=== PATIENT | male | born 1950 | race Caucasian/White ===

== ENCOUNTER → 2018-08-31 | Outpatient (CLI) | payer MEDICARE, MEDICAID ==
[~2018-08-31] MED LIST: HYDR2.5T38
[2018-08-31 08:44] LABS: Basophils # (auto) 0.1 uL; Basophils % (auto) 0.9 % (0.0-2.0); Eosinophils # (auto) 0.3 uL; Hematocrit 50.8 % (41.0-53.0); Hemoglobin 17.3 g/dL (13.5-17.5); Lymphocytes # (auto) 2.2 uL; Lymphocytes % (auto) 21.4 % (10.0-50.0); Mean Corpuscular Hemoglobin 31.8 pg (28.0-32.0); Mean Corpuscular Volume 93.6 fL (80.0-100.0); Monocytes # (auto) 0.8 uL; Monocytes % (auto) 7.6 % (0.0-12.0); Neutrophils # (auto) 6.8 uL; Neutrophils % (auto) 67.1 % (37.0-80.0); Nucleated Red Blood Cells % 0.3 %; Platelet Count (auto) 152 10^3/uL (140-450); Red Blood Cells 5.43 10^6/uL (4.5-5.90); Red Cell Distribution Width 14.5 % (11.8-14.3); White Blood Cell 10.1 10^3/uL (4.4-10.8)
[2018-08-31 08:45] LABS: Urine Bacteria MOD /hpf (None Seen); Urine Blood 1+ /uL (Negative); Urine Mucus FEW (None Seen); Urine Specific Gravity 1.015 (1.001-1.035); Urine WBC 65 /hpf (0 - 3)
[2018-08-31 09:02] LABS: Albumin 3.7 g/dL (3.4-5.0); BUN/Creatinine Ratio 9.4; Calcium 9.1 mg/dL (8.5-10.1)
[2018-08-31 09:05] LABS: Bilirubin, Total 0.6 mg/dL (0.2-1.0); Total Protein 7.7 g/dL (6.4-8.2)
== END | disposition home or self-care (01) ==
LOC: LAB 08:16
PROVIDERS: ATTEND Nurse Practitioner
DX: E11.9 Type 2 diabetes mellitus without complications (principal)
CPT/HCPCS: 36415; 80053; 80061; 81001; 82043; 83036; 84443; 85025

== ENCOUNTER → 2018-11-09 | Outpatient (CLI) | payer MEDICARE, MEDICAID ==
[2018-11-09 08:25] LABS: Basophils # (auto) 0.1 uL; Basophils % (auto) 0.8 % (0.0-2.0); Eosinophils # (auto) 0.3 uL; Hemoglobin 17.9 g/dL (13.5-17.5); Mean Corpuscular Hgb Conc. 33.1 g/dL (32.0-36.0); Monocytes # (auto) 0.9 uL; Nucleated Red Blood Cells % 0.1 %
[2018-11-09 08:27] LABS: Eosinophils % (auto) 2.7 % (0.0-7.0); Hematocrit 54.1 % (41.0-53.0); Lymphocytes # (auto) 3.2 uL; Lymphocytes % (auto) 26.3 % (10.0-50.0); Mean Corpuscular Hemoglobin 31.9 pg (28.0-32.0); Mean Corpuscular Volume 96.1 fL (80.0-100.0); Monocytes % (auto) 7.2 % (0.0-12.0); Neutrophils # (auto) 7.6 uL; Platelet Count (auto) 102 10^3/uL (140-450); Red Blood Cells 5.63 10^6/uL (4.5-5.90); Red Cell Distribution Width 14.5 % (11.8-14.3)
[2018-11-09 08:30] LABS: Urine Bacteria FEW /hpf (None Seen); Urine Blood TRACE /uL (Negative); Urine Mucus FEW (None Seen); Urine Specific Gravity 1.012 (1.001-1.035); Urine WBC 18 /hpf (0 - 3)
[2018-11-09 09:21] LABS: Calcium 9.1 mg/dL (8.5-10.1)
[2018-11-09 09:27] LABS: Bilirubin, Total 0.6 mg/dL (0.2-1.0); Total Protein 8.2 g/dL (6.4-8.2)
== END | disposition home or self-care (01) ==
LOC: LAB 07:57
PROVIDERS: ATTEND Nurse Practitioner
DX: E78.1 Pure hyperglyceridemia (principal); E11.49 Type 2 diabetes mellitus with other diabetic neurological complication
CPT/HCPCS: 36415; 80053; 80061; 81001; 82043; 82607; 83036; 84443; 85025

== ENCOUNTER → 2019-02-15 | Outpatient (CLI) | payer MEDICARE, MEDICAID ==
[2019-02-15 08:56] LABS: Basophils # (auto) 0.1 uL; Basophils % (auto) 0.9 % (0.0-2.0); Eosinophils # (auto) 0.3 uL; Eosinophils % (auto) 2.5 % (0.0-7.0); Hematocrit 50.2 % (41.0-53.0); Hemoglobin 16.9 g/dL (13.5-17.5); Lymphocytes # (auto) 2.8 uL; Lymphocytes % (auto) 24.3 % (10.0-50.0); Mean Corpuscular Hemoglobin 31.7 pg (28.0-32.0); Mean Corpuscular Hgb Conc. 33.7 g/dL (32.0-36.0); Mean Corpuscular Volume 93.9 fL (80.0-100.0); Monocytes # (auto) 0.8 uL; Monocytes % (auto) 6.7 % (0.0-12.0); Neutrophils # (auto) 7.6 uL; Neutrophils % (auto) 65.6 % (37.0-80.0); Platelet Count (auto) 168 10^3/uL (140-450); Red Blood Cells 5.35 10^6/uL (4.5-5.90); Red Cell Distribution Width 13.5 % (11.8-14.3); White Blood Cell 11.6 10^3/uL (4.4-10.8)
[2019-02-15 09:14] LABS: Potassium 4.1 mmol/L (3.5-5.1)
[2019-02-15 09:23] LABS: Urine Bacteria NONE SEEN /hpf (None Seen); Urine Blood TRACE /uL (Negative); Urine Mucus FEW (None Seen); Urine Specific Gravity 1.015 (1.001-1.035); Urine WBC 57 /hpf (0 - 3)
[2019-02-15 09:24] LABS: Albumin 3.9 g/dL (3.4-5.0); BUN/Creatinine Ratio 10.2; Bilirubin, Total 0.5 mg/dL (0.2-1.0); Calcium 9.6 mg/dL (8.5-10.1); Total Protein 8.2 g/dL (6.4-8.2)
== END | disposition home or self-care (01) ==
LOC: LAB 07:34
PROVIDERS: ATTEND Nurse Practitioner
DX: E78.5 Hyperlipidemia, unspecified (principal); R73.9 Hyperglycemia, unspecified
CPT/HCPCS: 36415; 80053; 80061; 81001; 82043; 83036; 84443; 85025

== ENCOUNTER → 2019-06-21 | Outpatient (CLI) | payer MEDICARE, MEDICAID ==
[2019-06-21 07:49] LABS: Basophils # (auto) 0.1 uL; Basophils % (auto) 0.9 % (0.0-2.0); Eosinophils # (auto) 0.3 uL; Eosinophils % (auto) 1.9 % (0.0-7.0); Hematocrit 48.5 % (41.0-53.0); Hemoglobin 16.7 g/dL (13.5-17.5); Lymphocytes # (auto) 2.7 uL; Lymphocytes % (auto) 20.1 % (10.0-50.0); Mean Corpuscular Hemoglobin 31.7 pg (28.0-32.0); Mean Corpuscular Hgb Conc. 34.4 g/dL (32.0-36.0); Mean Corpuscular Volume 92.2 fL (80.0-100.0); Monocytes % (auto) 7.6 % (0.0-12.0); Neutrophils # (auto) 9.2 uL; Neutrophils % (auto) 69.5 % (37.0-80.0); Platelet Count (auto) 156 10^3/uL (140-450); Red Blood Cells 5.26 10^6/uL (4.5-5.90); Red Cell Distribution Width 14.4 % (11.8-14.3); White Blood Cell 13.2 10^3/uL (4.4-10.8)
[2019-06-21 08:08] LABS: Albumin 3.6 g/dL (3.4-5.0); Calcium 9.6 mg/dL (8.5-10.1); Potassium 4.4 mmol/L (3.5-5.1)
[2019-06-21 08:15] LABS: BUN/Creatinine Ratio 9.3; Bilirubin, Total 0.9 mg/dL (0.2-1.0); Total Protein 7.9 g/dL (6.4-8.2)
[2019-06-21 08:18] LABS: Urine Bacteria NONE SEEN /hpf (None Seen); Urine Blood TRACE /uL (Negative); Urine Mucus FEW (None Seen); Urine Specific Gravity 1.015 (1.001-1.035); Urine WBC 233 /hpf (0 - 3); Urine WBC Clumps PRESENT /hpf (None Seen)
== END | disposition home or self-care (01) ==
LOC: LAB 07:19
PROVIDERS: ATTEND Nurse Practitioner
DX: E78.5 Hyperlipidemia, unspecified (principal); E11.9 Type 2 diabetes mellitus without complications
CPT/HCPCS: 36415; 80053; 80061; 81001; 83036; 85025

== ENCOUNTER → 2019-08-26 | Outpatient (CLI) | payer MEDICARE, MEDICAID ==
[2019-08-26 08:36] LABS: Basophils # (auto) 0.1 uL; Eosinophils # (auto) 0.3 uL; Hematocrit 50.8 % (41.0-53.0); Lymphocytes # (auto) 2.5 uL; Mean Corpuscular Hemoglobin 31.5 pg (28.0-32.0); Mean Corpuscular Hgb Conc. 33.5 g/dL (32.0-36.0); Mean Corpuscular Volume 94.1 fL (80.0-100.0); Neutrophils # (auto) 7.3 uL; Nucleated Red Blood Cells % 0.1 %; Platelet Count (auto) 162 10^3/uL (140-450); Red Blood Cells 5.39 10^6/uL (4.5-5.90); Red Cell Distribution Width 14.1 % (11.8-14.3); White Blood Cell 11.2 10^3/uL (4.4-10.8)
[2019-08-26 08:45] LABS: Urine Bacteria NONE SEEN /hpf (None Seen); Urine Blood Negative /uL (Negative); Urine Hyaline Cast FEW /lpf (0 - 2); Urine Mucus FEW (None Seen); Urine Specific Gravity 1.015 (1.001-1.035); Urine WBC 70 /hpf (0 - 3)
[2019-08-26 09:11] LABS: Albumin 3.9 g/dL (3.4-5.0); Anion Gap 8 (5-15); Blood Urea Nitrogen 14 mg/dL (7-18); Calcium 9.7 mg/dL (8.5-10.1); Carbon Dioxide 28 mmol/L (21-32); Chloride 106 mmol/L (98-107); Glucose 181 mg/dL (74-106); Potassium 3.9 mmol/L (3.5-5.1); Sodium 142 mmol/L (136-145)
[2019-08-26 09:16] LABS: Alanine Aminotransferase 42 U/L (16-61); Alkaline Phosphatase 166 U/L (45-117); Aspartate Aminotransferase 30 U/L (15-37); BUN/Creatinine Ratio 10.7; Bilirubin, Total 0.6 mg/dL (0.2-1.0); Cholesterol 200 mg/dL (< 200); GFR African American 70 mL/min; GFR Non-African American 58 mL/min; HDL Cholesterol 29 mg/dL (40-59); Total Protein 8.1 g/dL (6.4-8.2); Triglycerides 430 mg/dL (< 150)
== END | disposition home or self-care (01) ==
LOC: LAB 07:16
PROVIDERS: ATTEND Nurse Practitioner
DX: E78.5 Hyperlipidemia, unspecified (principal); E55.9 Vitamin D deficiency, unspecified; E11.22 Type 2 diabetes mellitus with diabetic chronic kidney disease; N18.9 Chronic kidney disease, unspecified
CPT/HCPCS: 36415; 80053; 80061; 81001; 82043; 82306; 83036; 84443; 85025

== ENCOUNTER → 2019-10-28 | Outpatient (CLI) | payer MEDICARE, MEDICAID ==
[2019-10-28 08:36] LABS: Basophils # (auto) 0.1 uL; Basophils % (auto) 0.7 % (0.0-2.0); Eosinophils # (auto) 0.2 uL; Eosinophils % (auto) 1.8 % (0.0-7.0); Hematocrit 49.1 % (41.0-53.0); Lymphocytes # (auto) 2.9 uL; Lymphocytes % (auto) 23.6 % (10.0-50.0); Mean Corpuscular Hemoglobin 32.1 pg (28.0-32.0); Mean Corpuscular Hgb Conc. 34.5 g/dL (32.0-36.0); Mean Corpuscular Volume 92.8 fL (80.0-100.0); Monocytes % (auto) 8.2 % (0.0-12.0); Neutrophils % (auto) 65.7 % (37.0-80.0); Platelet Count (auto) 155 10^3/uL (140-450); Red Blood Cells 5.29 10^6/uL (4.5-5.90); White Blood Cell 12.2 10^3/uL (4.4-10.8)
[2019-10-28 08:42] LABS: Urine Amorphous Crystal FEW /hpf (None Seen); Urine Bacteria MANY /hpf (None Seen); Urine Blood TRACE /uL (Negative); Urine Mucus FEW (None Seen); Urine Specific Gravity 1.016 (1.001-1.035); Urine WBC 82 /hpf (0 - 3)
[2019-10-28 09:11] LABS: Potassium 4.7 mmol/L (3.5-5.1)
[2019-10-28 09:27] LABS: Albumin 3.7 g/dL (3.4-5.0); BUN/Creatinine Ratio 9.6; Bilirubin, Total 0.8 mg/dL (0.2-1.0); Calcium 9.5 mg/dL (8.5-10.1); Total Protein 7.9 g/dL (6.4-8.2)
== END | disposition home or self-care (01) ==
LOC: LAB 07:26
PROVIDERS: ATTEND Nurse Practitioner
DX: E78.5 Hyperlipidemia, unspecified (principal); E11.9 Type 2 diabetes mellitus without complications
CPT/HCPCS: 36415; 80053; 80061; 81001; 82043; 83036; 85025

== ENCOUNTER → 2020-01-11 | Outpatient (CLI) | payer MEDICARE, MEDICAID ==
[2020-01-11 09:38] LABS: Urine Bacteria MOD /hpf (None Seen); Urine Blood Negative /uL (Negative); Urine Specific Gravity 1.015 (1.001-1.035); Urine WBC 34 /hpf (0 - 3)
[2020-01-11 09:44] LABS: Basophils # (auto) 0.1 uL; Basophils % (auto) 1.1 % (0.0-2.0); Eosinophils # (auto) 0.2 uL; Hematocrit 47.8 % (41.0-53.0); Hemoglobin 16.4 g/dL (13.5-17.5); Lymphocytes # (auto) 2.9 uL; Lymphocytes % (auto) 25.8 % (10.0-50.0); Mean Corpuscular Hemoglobin 32.3 pg (28.0-32.0); Mean Corpuscular Hgb Conc. 34.4 g/dL (32.0-36.0); Monocytes % (auto) 8.8 % (0.0-12.0); Neutrophils # (auto) 6.9 uL; Neutrophils % (auto) 62.3 % (37.0-80.0); Nucleated Red Blood Cells % 0.1 %; Platelet Count (auto) 160 10^3/uL (140-450); Red Blood Cells 5.09 10^6/uL (4.5-5.90); Red Cell Distribution Width 13.6 % (11.8-14.3); White Blood Cell 11.1 10^3/uL (4.4-10.8)
[2020-01-11 10:04] LABS: Potassium 4.3 mmol/L (3.5-5.1)
[2020-01-11 10:21] LABS: Albumin 3.7 g/dL (3.4-5.0); BUN/Creatinine Ratio 8.8; Bilirubin, Total 0.5 mg/dL (0.2-1.0); Calcium 9.9 mg/dL (8.5-10.1); Total Protein 8.3 g/dL (6.4-8.2)
== END | disposition home or self-care (01) ==
LOC: LAB 08:44
PROVIDERS: ATTEND Nurse Practitioner
DX: Z12.5 Encounter for screening for malignant neoplasm of prostate (principal); E11.9 Type 2 diabetes mellitus without complications; E78.5 Hyperlipidemia, unspecified; R30.0 Dysuria
CPT/HCPCS: 36415; 80053; 80061; 81001; 82043; 83036; 84153; 84443; 85025; 87086

== ENCOUNTER → 2020-04-28 | Outpatient (CLI) | payer MEDICARE, MEDICAID ==
[2020-04-28 07:41] LABS: Basophils # (auto) 0.1 10 ^3/uL (0-0.2); Basophils % (auto) 1.3 % (0.0-2.0); Eosinophils # (auto) 0.3 10 ^3/uL (0-0.8); Eosinophils % (auto) 3.2 % (0.0-7.0); Hemoglobin 15.9 g/dL (13.5-17.5); Lymphocytes # (auto) 2.4 10 ^3/uL (0.4-5.4); Lymphocytes % (auto) 27.1 % (10.0-50.0); Mean Corpuscular Hemoglobin 31.8 pg (28.0-32.0); Mean Corpuscular Hgb Conc. 33.9 g/dL (32.0-36.0); Mean Corpuscular Volume 93.7 fL (80.0-100.0); Monocytes % (auto) 10.9 % (0.0-12.0); Neutrophils % (auto) 57.5 % (37.0-80.0); Nucleated Red Blood Cells % 0.1 %; Platelet Count (auto) 128 10^3/uL (140-450); Red Blood Cells 5.02 10^6/uL (4.5-5.90); Red Cell Distribution Width 14.1 % (11.8-14.3); White Blood Cell 8.7 10^3/uL (4.4-10.8)
[2020-04-28 07:54] LABS: Urine Bacteria FEW /hpf (None Seen); Urine Blood 1+ /uL (Negative); Urine Mucus FEW (None Seen); Urine Specific Gravity 1.012 (1.001-1.035); Urine WBC 44 /hpf (0 - 3)
[2020-04-28 08:07] LABS: Albumin 3.4 g/dL (3.4-5.0); Anion Gap 7 (5-15); Blood Urea Nitrogen 13 mg/dL (7-18); Calcium 9.3 mg/dL (8.5-10.1); Carbon Dioxide 26 mmol/L (21-32); Chloride 104 mmol/L (98-107); Glucose 298 mg/dL (74-106); Potassium 4.3 mmol/L (3.5-5.1); Sodium 137 mmol/L (136-145)
[2020-04-28 08:12] LABS: Alanine Aminotransferase 52 U/L (16-61); Alkaline Phosphatase 166 U/L (45-117); Aspartate Aminotransferase 33 U/L (15-37); BUN/Creatinine Ratio 9.4; Bilirubin, Total 0.7 mg/dL (0.2-1.0); Cholesterol 187 mg/dL (< 200); GFR African American 66 mL/min; GFR Non-African American 54 mL/min; HDL Cholesterol 22 mg/dL (40-59); Total Protein 7.6 g/dL (6.4-8.2); Triglycerides 580 mg/dL (< 150)
== END | disposition home or self-care (01) ==
LOC: LAB 07:18
PROVIDERS: ATTEND Nurse Practitioner
DX: E78.5 Hyperlipidemia, unspecified (principal); I10 Essential (primary) hypertension; R30.0 Dysuria
CPT/HCPCS: 36415; 80053; 80061; 81001; 84443; 85025

== ENCOUNTER → 2020-06-26 | Outpatient (CLI) | payer MEDICARE, MEDICAID ==
[2020-06-26 09:22] LABS: Urine Bacteria NONE SEEN /hpf (None Seen); Urine Blood Negative /uL (Negative); Urine Mucus FEW (None Seen); Urine Specific Gravity 1.014 (1.001-1.035); Urine WBC 114 /hpf (0 - 3)
== END | disposition home or self-care (01) ==
LOC: LAB 09:09
PROVIDERS: ATTEND Nurse Practitioner
DX: N39.0 Urinary tract infection, site not specified (principal)
CPT/HCPCS: 81001; 87086

== ENCOUNTER → 2020-08-24 | Outpatient (CLI) | payer MEDICARE, MEDICAID ==
[2020-08-24 07:55] LABS: Basophils # (auto) 0.1 10 ^3/uL (0-0.2); Basophils % (auto) 1.1 % (0.0-2.0); Eosinophils # (auto) 0.3 10 ^3/uL (0-0.8); Eosinophils % (auto) 2.8 % (0.0-7.0); Hemoglobin 16.3 g/dL (13.5-17.5); Lymphocytes # (auto) 2.4 10 ^3/uL (0.4-5.4); Lymphocytes % (auto) 26.7 % (10.0-50.0); Mean Corpuscular Hemoglobin 31.6 pg (28.0-32.0); Mean Corpuscular Hgb Conc. 34.1 g/dL (32.0-36.0); Mean Corpuscular Volume 92.8 fL (80.0-100.0); Monocytes # (auto) 0.9 10 ^3/uL (0-1.3); Monocytes % (auto) 9.6 % (0.0-12.0); Neutrophils # (auto) 5.5 10 ^3/uL (1.6-8.6); Neutrophils % (auto) 59.8 % (37.0-80.0); Nucleated Red Blood Cells % 0.1 %; Platelet Count (auto) 148 10^3/uL (140-450); Red Blood Cells 5.17 10^6/uL (4.5-5.90); Red Cell Distribution Width 13.7 % (11.8-14.3); White Blood Cell 9.1 10^3/uL (4.4-10.8)
[2020-08-24 08:25] LABS: Albumin 3.9 g/dL (3.4-5.0); Anion Gap 7 (5-15); Calcium 9.8 mg/dL (8.5-10.1); Carbon Dioxide 25 mmol/L (21-32); Chloride 101 mmol/L (98-107); Potassium 4.3 mmol/L (3.5-5.1); Sodium 133 mmol/L (136-145)
[2020-08-24 08:31] LABS: Alanine Aminotransferase 70 U/L (16-61); Alkaline Phosphatase 174 U/L (45-117); Aspartate Aminotransferase 43 U/L (15-37); BUN/Creatinine Ratio 10.8; Bilirubin, Total 1.1 mg/dL (0.2-1.0); Blood Urea Nitrogen 15 mg/dL (7-18); Cholesterol 221 mg/dL (< 200); GFR African American 65 mL/min; GFR Non-African American 54 mL/min; Glucose 283 mg/dL (74-106); HDL Cholesterol 35 mg/dL (40-59); Total Protein 7.8 g/dL (6.4-8.2); Triglycerides 433 mg/dL (< 150)
== END | disposition home or self-care (01) ==
LOC: LAB 07:08
PROVIDERS: ATTEND Nurse Practitioner
DX: E11.9 Type 2 diabetes mellitus without complications (principal); E78.5 Hyperlipidemia, unspecified
CPT/HCPCS: 36415; 80053; 80061; 83036; 85025

== ENCOUNTER → 2020-10-27 | Outpatient (CLI) | payer MEDICARE, MEDICAID ==
[2020-10-27 08:35] LABS: Potassium 3.9 mmol/L (3.5-5.1)
[2020-10-27 08:54] LABS: Albumin 3.8 g/dL (3.4-5.0); BUN/Creatinine Ratio 8.2; Bilirubin, Total 0.6 mg/dL (0.2-1.0); Calcium 9.4 mg/dL (8.5-10.1)
== END | disposition home or self-care (01) ==
LOC: LAB 07:06
PROVIDERS: ATTEND Nurse Practitioner
DX: E11.9 Type 2 diabetes mellitus without complications (principal); E78.5 Hyperlipidemia, unspecified
CPT/HCPCS: 36415; 80053; 80061; 83036

== ENCOUNTER → 2020-12-28 | Outpatient (CLI) | payer MEDICARE, MEDICAID ==
[2020-12-28 07:48] LABS: Urine Bacteria FEW /hpf (None Seen); Urine Blood Negative /uL (Negative); Urine Budding Yeast OCCASIONAL /hpf (None Seen); Urine Hyaline Cast FEW /lpf (0 - 2); Urine Mucus FEW (None Seen); Urine Specific Gravity 1.011 (1.001-1.035); Urine WBC 117 /hpf (0 - 3)
[2020-12-28 07:50] LABS: Basophils # (auto) 0.1 10 ^3/uL (0-0.2); Basophils % (auto) 0.7 % (0.0-2.0); Eosinophils # (auto) 0.3 10 ^3/uL (0-0.8); Eosinophils % (auto) 3.3 % (0.0-7.0); Hematocrit 47.3 % (41.0-53.0); Hemoglobin 16.4 g/dL (13.5-17.5); Lymphocytes # (auto) 2.8 10 ^3/uL (0.4-5.4); Lymphocytes % (auto) 28.3 % (10.0-50.0); Mean Corpuscular Hemoglobin 32.3 pg (28.0-32.0); Mean Corpuscular Hgb Conc. 34.6 g/dL (32.0-36.0); Mean Corpuscular Volume 93.3 fL (80.0-100.0); Monocytes # (auto) 0.9 10 ^3/uL (0-1.3); Monocytes % (auto) 9.3 % (0.0-12.0); Neutrophils # (auto) 5.8 10 ^3/uL (1.6-8.6); Neutrophils % (auto) 58.4 % (37.0-80.0); Nucleated Red Blood Cells % 0.1 %; Platelet Count (auto) 143 10^3/uL (140-450); Red Blood Cells 5.07 10^6/uL (4.5-5.90); Red Cell Distribution Width 14.4 % (11.8-14.3); White Blood Cell 9.9 10^3/uL (4.4-10.8)
[2020-12-28 08:15] LABS: Albumin 3.7 g/dL (3.4-5.0); Anion Gap 7 (5-15); Carbon Dioxide 26 mmol/L (21-32); Chloride 105 mmol/L (98-107); Potassium 4.4 mmol/L (3.5-5.1); Sodium 138 mmol/L (136-145)
[2020-12-28 08:22] LABS: Alanine Aminotransferase 48 U/L (16-61); Alkaline Phosphatase 174 U/L (45-117); Aspartate Aminotransferase 37 U/L (15-37); BUN/Creatinine Ratio 9.8; Bilirubin, Total 0.5 mg/dL (0.2-1.0); Blood Urea Nitrogen 12 mg/dL (7-18); Calcium 9.6 mg/dL (8.5-10.1); Cholesterol 197 mg/dL (< 200); GFR African American 76 mL/min; GFR Non-African American 63 mL/min; Glucose 169 mg/dL (74-106); HDL Cholesterol 29 mg/dL (40-59); Total Protein 8.1 g/dL (6.4-8.2); Triglycerides 480 mg/dL (< 150)
== END | disposition home or self-care (01) ==
LOC: LAB 07:15
PROVIDERS: ATTEND Nurse Practitioner
DX: I10 Essential (primary) hypertension (principal); E11.9 Type 2 diabetes mellitus without complications; E78.5 Hyperlipidemia, unspecified
CPT/HCPCS: 36415; 80053; 80061; 81001; 82043; 83036; 85025

== ENCOUNTER → 2021-04-26 | Outpatient (CLI) | payer MEDICARE, MEDICAID ==
[2021-04-26 07:53] LABS: Basophils # (auto) 0.1 10 ^3/uL (0-0.2); Eosinophils # (auto) 0.2 10 ^3/uL (0-0.8); Eosinophils % (auto) 1.7 % (0.0-7.0); Hematocrit 45.8 % (41.0-53.0); Hemoglobin 15.9 g/dL (13.5-17.5); Lymphocytes # (auto) 2.5 10 ^3/uL (0.4-5.4); Lymphocytes % (auto) 20.3 % (10.0-50.0); Mean Corpuscular Hemoglobin 32.3 pg (28.0-32.0); Mean Corpuscular Hgb Conc. 34.8 g/dL (32.0-36.0); Mean Corpuscular Volume 92.8 fL (80.0-100.0); Monocytes # (auto) 1.1 10 ^3/uL (0-1.3); Monocytes % (auto) 9.2 % (0.0-12.0); Neutrophils # (auto) 8.5 10 ^3/uL (1.6-8.6); Neutrophils % (auto) 67.8 % (37.0-80.0); Platelet Count (auto) 140 10^3/uL (140-450); Red Blood Cells 4.93 10^6/uL (4.5-5.90); Red Cell Distribution Width 13.8 % (11.8-14.3); White Blood Cell 12.5 10^3/uL (4.4-10.8)
[2021-04-26 08:04] LABS: Urine Bacteria FEW /hpf (None Seen); Urine Blood Negative /uL (Negative); Urine Mucus FEW (None Seen); Urine Sperm PRESENT /hpf (None Seen); Urine WBC 95 /hpf (0 - 3)
[2021-04-26 08:27] LABS: Albumin 3.6 g/dL (3.4-5.0); Anion Gap 10 (5-15); Blood Urea Nitrogen 11 mg/dL (7-18); Calcium 9.3 mg/dL (8.5-10.1); Carbon Dioxide 23 mmol/L (21-32); Chloride 116 mmol/L (98-107); Glucose 193 mg/dL (74-106); Potassium 4.4 mmol/L (3.5-5.1); Sodium 149 mmol/L (136-145)
[2021-04-26 08:31] LABS: Alanine Aminotransferase 57 U/L (16-61); Alkaline Phosphatase 170 U/L (45-117); Aspartate Aminotransferase 44 U/L (15-37); Bilirubin, Total 0.7 mg/dL (0.2-1.0); Cholesterol 196 mg/dL (< 200); GFR African American 76 mL/min; GFR Non-African American 63 mL/min; HDL Cholesterol 31 mg/dL (40-59); Total Protein 7.7 g/dL (6.4-8.2); Triglycerides 436 mg/dL (< 150)
== END | disposition home or self-care (01) ==
LOC: LAB 07:35
PROVIDERS: ATTEND Nurse Practitioner
DX: E11.22 Type 2 diabetes mellitus with diabetic chronic kidney disease (principal); N18.9 Chronic kidney disease, unspecified; E78.5 Hyperlipidemia, unspecified
CPT/HCPCS: 36415; 80053; 80061; 81001; 82043; 83036; 85025

== ENCOUNTER → 2021-10-31 | Outpatient (CLI) | payer MEDICARE, MEDICAID ==
[2021-10-31 07:49] LABS: Basophils # (auto) 0.1 10 ^3/uL (0-0.2); Basophils % (auto) 0.9 % (0.0-2.0); Eosinophils # (auto) 0.3 10 ^3/uL (0-0.8); Eosinophils % (auto) 3.1 % (0.0-7.0); Lymphocytes # (auto) 2.3 10 ^3/uL (0.4-5.4); Lymphocytes % (auto) 23.4 % (10.0-50.0); Mean Corpuscular Hemoglobin 32.1 pg (28.0-32.0); Mean Corpuscular Hgb Conc. 34.1 g/dL (32.0-36.0); Monocytes # (auto) 0.9 10 ^3/uL (0-1.3); Monocytes % (auto) 9.4 % (0.0-12.0); Neutrophils # (auto) 6.1 10 ^3/uL (1.6-8.6); Neutrophils % (auto) 63.2 % (37.0-80.0); Red Cell Distribution Width 13.9 % (11.8-14.3); White Blood Cell 9.6 10^3/uL (4.4-10.8)
[2021-10-31 08:08] LABS: Urine Bacteria NONE SEEN /hpf (None Seen); Urine Blood TRACE /uL (Negative); Urine Specific Gravity 1.014 (1.001-1.035); Urine WBC 252 /hpf (0 - 3)
[2021-10-31 09:21] LABS: Potassium 4.9 mmol/L (3.5-5.1)
[2021-10-31 09:35] LABS: Albumin 3.6 g/dL (3.4-5.0); BUN/Creatinine Ratio 8.5; Bilirubin, Total 0.9 mg/dL (0.2-1.0); Calcium 9.5 mg/dL (8.5-10.1)
== END | disposition home or self-care (01) ==
LOC: LAB 07:11
PROVIDERS: ATTEND Nurse Practitioner
DX: E11.9 Type 2 diabetes mellitus without complications (principal); E78.5 Hyperlipidemia, unspecified; I10 Essential (primary) hypertension
CPT/HCPCS: 36415; 80053; 80061; 81001; 82043; 83036; 85025

== ENCOUNTER → 2021-11-13 | Outpatient (CLI) | payer MEDICARE, MEDICAID ==
[2021-11-13 14:29] LABS: Urine Bacteria NONE SEEN /hpf (None Seen); Urine Blood Negative /uL (Negative); Urine Hyaline Cast FEW /lpf (0 - 2); Urine Mucus FEW (None Seen); Urine Specific Gravity 1.019 (1.001-1.035); Urine WBC 141 /hpf (0 - 3)
== END | disposition home or self-care (01) ==
LOC: LAB 11:46
PROVIDERS: ATTEND Nurse Practitioner
DX: N39.0 Urinary tract infection, site not specified (principal)
CPT/HCPCS: 81001; 87086

== ENCOUNTER → 2022-07-25 | Outpatient (CLI) | payer MEDICARE, MEDICAID ==
[2022-07-25 14:51] LABS: Urine Bacteria FEW /hpf (None Seen); Urine Blood TRACE /uL (Negative); Urine Hyaline Cast FEW /lpf (0 - 2); Urine Mucus FEW (None Seen); Urine Specific Gravity 1.021 (1.001-1.035); Urine WBC 191 /hpf (0 - 3); Urine WBC Clumps PRESENT /hpf (None Seen)
== END | disposition home or self-care (01) ==
LOC: LAB 14:13
PROVIDERS: ATTEND Urology
DX: N39.0 Urinary tract infection, site not specified (principal)
CPT/HCPCS: 81001; 87086

== ENCOUNTER → 2022-10-09 | Outpatient (CLI) | payer MEDICARE, MEDICAID ==
[2022-10-09 07:02] LABS: Basophils # (auto) 0.1 10 ^3/uL (0-0.2); Eosinophils # (auto) 0.3 10 ^3/uL (0-0.8); Eosinophils % (auto) 2.8 % (0.0-7.0); Hematocrit 47.5 % (41.0-53.0); Hemoglobin 16.7 g/dL (13.5-17.5); Lymphocytes # (auto) 2.4 10 ^3/uL (0.4-5.4); Lymphocytes % (auto) 22.5 % (10.0-50.0); Mean Corpuscular Hemoglobin 33.1 pg (28.0-32.0); Mean Corpuscular Hgb Conc. 35.1 g/dL (32.0-36.0); Mean Corpuscular Volume 94.2 fL (80.0-100.0); Monocytes # (auto) 0.7 10 ^3/uL (0-1.3); Monocytes % (auto) 6.9 % (0.0-12.0); Neutrophils % (auto) 66.8 % (37.0-80.0); Nucleated Red Blood Cells % 0.1 %; Red Blood Cells 5.05 10^6/uL (4.5-5.90); White Blood Cell 10.5 10^3/uL (4.4-10.8)
[2022-10-09 07:41] LABS: Albumin 3.5 g/dL (3.4-5.0); Anion Gap 8 (5-15); Blood Urea Nitrogen 16 mg/dL (7-18); Calcium 9.3 mg/dL (8.5-10.1); Carbon Dioxide 24 mmol/L (21-32); Chloride 105 mmol/L (98-107); Glucose 277 mg/dL (74-106); Sodium 137 mmol/L (136-145)
[2022-10-09 07:49] LABS: Alanine Aminotransferase 49 U/L (16-61); Alkaline Phosphatase 160 U/L (45-117); Aspartate Aminotransferase 32 U/L (15-37); BUN/Creatinine Ratio 11.3; Bilirubin, Total 0.6 mg/dL (0.2-1.0); Cholesterol 190 mg/dL (< 200); GFR African American 64 mL/min; GFR Non-African American 53 mL/min; HDL Cholesterol 32 mg/dL (40-59); Total Protein 7.6 g/dL (6.4-8.2); Triglycerides 457 mg/dL (< 150)
[2022-10-09 08:04] LABS: Urine Bacteria NONE SEEN /hpf (None Seen); Urine Blood Negative /uL (Negative); Urine Specific Gravity 1.013 (1.001-1.035); Urine WBC 48 /hpf (0 - 3)
[2022-10-09 10:21] LABS: Free T4 (Free Thyroxine) 1.09 ng/dL (0.89-1.76)
[2022-10-09 10:22] LABS: Carcinoembryonic Antigen 3.04 ng/mL (<5.0 OR =)
== END | disposition home or self-care (01) ==
LOC: LAB 06:45
PROVIDERS: ATTEND Internal Medicine
DX: E11.22 Type 2 diabetes mellitus with diabetic chronic kidney disease (principal); N18.9 Chronic kidney disease, unspecified; N13.30 Unspecified hydronephrosis; E55.9 Vitamin D deficiency, unspecified; R97.8 Other abnormal tumor markers
CPT/HCPCS: 36415; 80053; 80061; 81001; 82043; 82306; 82378; 82607; 83036; 84439; 84443; 85025

== ENCOUNTER → 2022-10-11 | Outpatient (CLI) | payer MEDICARE, MEDICAID ==
[2022-10-11 07:15] LABS: Urine Bacteria FEW /hpf (None Seen); Urine Blood 1+ /uL (Negative); Urine Budding Yeast FEW /hpf (None Seen); Urine Hyaline Cast FEW /lpf (0 - 2); Urine Mucus FEW (None Seen); Urine WBC 157 /hpf (0 - 3); Urine WBC Clumps PRESENT /hpf (None Seen)
== END | disposition home or self-care (01) ==
LOC: LAB 06:43
PROVIDERS: ATTEND Urology
DX: N39.0 Urinary tract infection, site not specified (principal)
CPT/HCPCS: 81001; 87086

== ENCOUNTER → 2023-02-20 | Outpatient (CLI) | payer MEDICARE, MEDICAID ==
[2023-02-20 08:04] LABS: Albumin 3.4 g/dL (3.4-5.0); Calcium 8.9 mg/dL (8.5-10.1); Potassium 4.3 mmol/L (3.5-5.1)
[2023-02-20 08:08] LABS: Bilirubin, Total 0.4 mg/dL (0.2-1.0); Total Protein 7.4 g/dL (6.4-8.2)
== END | disposition home or self-care (01) ==
LOC: LAB 07:17
PROVIDERS: ATTEND Internal Medicine
DX: Z01.812 Encounter for preprocedural laboratory examination (principal)
CPT/HCPCS: 36415; 80053

== ENCOUNTER 2024-04-20 10:49 | Emergency (ER) | payer MEDICARE, MEDICAID ==
[~2024-04-20] VITALS: Ht 172.7 cm; Wt 75.9 kg
[2024-04-20 11:51] LABS: Urine Bacteria MANY /hpf (None Seen); Urine Blood 2+ /uL (Negative); Urine Clarity Ex.Turbid (Clear); Urine Color Light-Orange (Yellow); Urine Mucus FEW (None Seen); Urine Protein, UAD 1+ (Negative); Urine Specific Gravity 1.011 (1.001-1.035); Urine Urobilinogen Normal (Negative); Urine WBC 1749 /hpf (0 - 3); Urine WBC Clumps PRESENT /hpf (None Seen); Urine pH 5.5 (5.0-9.0)
[2024-04-20] MEDS: SODIUM CHLORIDE 0.9% 1,000 ML IVB ONE (13:04)
[2024-04-20 13:06] VITALS: BP 127/59; PULSE 92; RESP 19; TEMP 97.9; O2SAT 96
[2024-04-20] MEDS: KETOROLAC TROMETH 30 MG/ML 1ML VIAL IV ONE (13:19)
[2024-04-20 13:23] LABS: Basophils # (auto) 0.1 10 ^3/uL (0-0.2); Basophils % (auto) 0.4 % (0.0-2.0); Eosinophils # (auto) 0 10 ^3/uL (0-0.8); Eosinophils % (auto) 0.2 % (0.0-7.0); Hematocrit 46.5 % (41.0-53.0); Hemoglobin 15.8 g/dL (13.5-17.5); Lymphocytes # (auto) 2.3 10 ^3/uL (0.4-5.4); Lymphocytes % (auto) 10.7 % (10.0-50.0); Monocytes # (auto) 2.5 10 ^3/uL (0-1.3); Monocytes % (auto) 11.6 % (0.0-12.0); Neutrophils # (auto) 16.9 10 ^3/uL (1.6-8.6); Neutrophils % (auto) 77.1 % (37.0-80.0); Red Blood Cells 4.94 10^6/uL (4.5-5.90); Red Cell Distribution Width 13.6 % (11.8-14.3); White Blood Cell 21.8 10^3/uL (4.4-10.8)
[2024-04-20 13:33] LABS: Chloride 104 mmol/L (98-107); Potassium 4.3 mmol/L (3.5-5.1); Sodium 135 mmol/L (136-145)
[2024-04-20 13:34] LABS: Anion Gap 9 (5-15); Calcium 9.9 mg/dL (8.7-10.4); Carbon Dioxide 22 mmol/L (20-30)
[2024-04-20 13:39] LABS: BUN/Creatinine Ratio 17.5 (10.0-20.0); Blood Urea Nitrogen 25 mg/dL (9-23); Glucose 162 mg/dL (74-106)
[2024-04-20] MEDS ORDERED: DEXTROSE (50%) 50ML SYRG IV PRN (14:15)
[2024-04-20] MEDS ORDERED: TAMSULOSIN HYDROCHLORIDE 0.4 MG CAP PO ONE (14:15)
[2024-04-20] MEDS ORDERED: SODIUM CHLORIDE 0.9% 1,000 ML IV SCH (14:15)
[2024-04-20] MEDS ORDERED: cefTRIAXone 1GM/50ML D5W 50 ML IV ONE (14:15)
[2024-04-20] MEDS ORDERED: ACCU-CHEK COMFORT CURVE STRIP VI SCH (17:00)
[2024-04-20] MEDS ORDERED: InsuLIN REG 1unit/0.01ml Soln (100units/ml) SC SCH (17:00)
[2024-04-20] MEDS ORDERED: TAMSULOSIN HYDROCHLORIDE 0.4 MG CAP PO SCH (18:00)
[2024-04-21] MEDS ORDERED: cefTRIAXone 1GM/50ML D5W 50 ML IV SCH (09:00)
== END 2024-04-20 14:46 | disposition left against medical advice (07) ==
LOC: ER 10:49
DX: N13.6 Pyonephrosis (principal); E11.9 Type 2 diabetes mellitus without complications; F17.210 Nicotine dependence, cigarettes, uncomplicated; F15.90 Other stimulant use, unspecified, uncomplicated; Z87.442 Personal history of urinary calculi; Z98.890 Other specified postprocedural states; Z79.899 Other long term (current) drug therapy
CPT/HCPCS: 36415; 74176; 80048; 81001; 83036; 85025; 96361; 96374; 99285; J1885; J7030

== ENCOUNTER → 2024-05-07 | Outpatient (CLI) | payer MEDICARE, MEDICAID ==
[2024-05-07 08:16] LABS: Alanine Aminotransferase 43 U/L (7-40); Albumin 4.1 g/dL (3.2-4.8); Alkaline Phosphatase 171 U/L (46-116); Anion Gap 4 (5-15); Aspartate Aminotransferase 35 U/L (13-40); BUN/Creatinine Ratio 11.9 (10.0-20.0); Blood Urea Nitrogen 16 mg/dL (9-23); Carbon Dioxide 27 mmol/L (20-30); Chloride 106 mmol/L (98-107); Glucose 195 mg/dL (74-106); Potassium 4.8 mmol/L (3.5-5.1); Sodium 137 mmol/L (136-145)
[2024-05-07 08:17] LABS: Bilirubin, Total 0.7 mg/dL (0.2-1.0); Total Protein 7.6 g/dL (5.7-8.2)
== END | disposition home or self-care (01) ==
LOC: LAB 07:18
PROVIDERS: ATTEND Internal Medicine
DX: C22.0 Liver cell carcinoma (principal); E11.22 Type 2 diabetes mellitus with diabetic chronic kidney disease; N18.9 Chronic kidney disease, unspecified
CPT/HCPCS: 36415; 80053

== ENCOUNTER → 2024-05-25 | Outpatient (CLI) | payer MEDICARE, MEDICAID ==
[2024-05-25 07:14] LABS: Urine Bacteria None Seen /hpf (None Seen)
[2024-05-25 07:26] LABS: Urine Blood Negative /uL (Negative); Urine Clarity Clear (Clear); Urine Color Light-Yellow (Yellow); Urine Hyaline Cast FEW /lpf (0 - 2); Urine Protein, UAD Negative (Negative); Urine Specific Gravity 1.008 (1.001-1.035); Urine Urobilinogen Normal (Negative); Urine WBC 23 /hpf (0 - 3); Urine pH 6.5 (5.0-9.0)
[2024-05-25 07:28] LABS: Basophils # (auto) 0.1 10 ^3/uL (0-0.2); Basophils % (auto) 1.2 % (0.0-2.0); Eosinophils # (auto) 0.6 10 ^3/uL (0-0.8); Eosinophils % (auto) 5.1 % (0.0-7.0); Hematocrit 46.2 % (41.0-53.0); Hemoglobin 15.8 g/dL (13.5-17.5); Lymphocytes # (auto) 2.3 10 ^3/uL (0.4-5.4); Lymphocytes % (auto) 21.3 % (10.0-50.0); Mean Corpuscular Hemoglobin 31.9 pg (28.0-32.0); Mean Corpuscular Hgb Conc. 34.2 g/dL (32.0-36.0); Mean Corpuscular Volume 93.2 fL (80.0-100.0); Monocytes # (auto) 0.9 10 ^3/uL (0-1.3); Neutrophils % (auto) 64.4 % (37.0-80.0); Red Blood Cells 4.96 10^6/uL (4.5-5.90); Red Cell Distribution Width 14.6 % (11.8-14.3); White Blood Cell 10.8 10^3/uL (4.4-10.8)
== END | disposition home or self-care (01) ==
LOC: LAB 07:06
PROVIDERS: ATTEND Internal Medicine
DX: N39.0 Urinary tract infection, site not specified (principal)
CPT/HCPCS: 36415; 81001; 85025

== ENCOUNTER → 2024-10-05 | Outpatient (CLI) | payer MEDICARE, MEDICAID ==
[~2024-10-05] MED LIST changes: +CIP500T PO
[2024-10-05 08:57] LABS: Basophils # (auto) 0.1 10 ^3/uL (0-0.2); Basophils % (auto) 0.8 % (0.0-2.0); Eosinophils # (auto) 0.3 10 ^3/uL (0-0.8); Eosinophils % (auto) 3.1 % (0.0-7.0); Hematocrit 42.9 % (41.0-53.0); Hemoglobin 14.5 g/dL (13.5-17.5); Lymphocytes # (auto) 2.1 10 ^3/uL (0.4-5.4); Lymphocytes % (auto) 19.8 % (10.0-50.0); Mean Corpuscular Hemoglobin 31.9 pg (28.0-32.0); Mean Corpuscular Hgb Conc. 33.8 g/dL (32.0-36.0); Mean Corpuscular Volume 94.2 fL (80.0-100.0); Monocytes # (auto) 0.8 10 ^3/uL (0-1.3); Monocytes % (auto) 7.1 % (0.0-12.0); Neutrophils # (auto) 7.4 10 ^3/uL (1.6-8.6); Neutrophils % (auto) 69.2 % (37.0-80.0); Platelet Count (auto) 144 10^3/uL (140-450); Red Blood Cells 4.56 10^6/uL (4.5-5.90); Red Cell Distribution Width 14.8 % (11.8-14.3); White Blood Cell 10.7 10^3/uL (4.4-10.8)
[2024-10-05 09:04] LABS: INR 1.02 (0.9-1.15); Prothrombin Time 10.8 sec (9.3-11.8)
[2024-10-05 09:11] LABS: Alanine Aminotransferase 24 U/L (7-40); Alkaline Phosphatase 149 U/L (46-116); Anion Gap 5 (5-15); Aspartate Aminotransferase 33 U/L (13-40); BUN/Creatinine Ratio 10.3 (10.0-20.0); Bilirubin, Total 0.9 mg/dL (0.2-1.0); Blood Urea Nitrogen 15 mg/dL (9-23); Carbon Dioxide 28 mmol/L (20-31); Chloride 106 mmol/L (98-107); Glucose 260 mg/dL (74-106); Potassium 3.8 mmol/L (3.5-5.1); Sodium 139 mmol/L (136-145); Total Protein 7.9 g/dL (5.7-8.2)
[2024-10-06 13:08] LABS: AFP Serum Tumor Marker 6.3 ng/mL (0.0-8.4)
== END | disposition home or self-care (01) ==
LOC: LAB 08:15
PROVIDERS: ATTEND Internal Medicine
DX: C22.0 Liver cell carcinoma (principal); E11.22 Type 2 diabetes mellitus with diabetic chronic kidney disease; N18.31 Chronic kidney disease, stage 3a
CPT/HCPCS: 36415; 80053; 82105; 82378; 85025; 85610; 86301

== ENCOUNTER 2024-10-06 14:39 | Inpatient (IN) | payer MEDICARE, MEDICAID ==
[~2024-10-06] VITALS: Ht 170.2 cm; Wt 73.6 kg
[~2024-10-06 14:39] MED LIST changes: -CIP500T PO
[2024-10-06] MEDS ORDERED: LORazepam 0.5 MG TAB PO PRN (16:45)
[2024-10-06] MEDS ORDERED: DEXTROSE (50%) 50ML SYRG IV PRN (16:45)
[2024-10-06] MEDS ORDERED: MAALOX PLUS or MAALOX 30 ML PO PRN (16:45)
[2024-10-06] MEDS ORDERED: ACETAMINOPHEN 325 MG TAB PO PRN (16:45)
[2024-10-06] MEDS ORDERED: HYDROmorphone HCL 2 MG/ML VL/or syr IV PRN (16:45)
[2024-10-06] MEDS ORDERED: ONDANSETRON HCL 4 MG/2 ML VIAL IV PRN (16:45)
--- NOTE | 2024-10-06 16:50 | DVHHP2 ---
History of Present Illness Reason for Visit: Generalized Weakness and Weight Loss History of Present Illness Patient is a 74-year-old gentleman with a past medical history of type 2 diabetes mellitus, CKD stage 3, Skin Cancer, tobacco abuse, liver mass who originally presented to the clinic sometime ago with complaints of weight loss generalized weakness. In 2022 patient underwent an MRI of the abdomen which showed some capsular mass highly suspicious of hepatocellular carcinoma. Patient advised to have a biopsy done at that time did not have it done. At this time patient continues to lose weight lethargic. Patient is also having loss of appetite. Past Medical History See HPI Review of Systems Constitutional: Yes: Weakness, Malaise Eyes: No: Pain, Vision change, Conjunctivae inflammation, Eyelid inflammation, Other, Redness ENT: No: Ear pain, Ear discharge, Nose pain, Nose discharge, Nose congestion, Mouth pain, Mouth swelling, Throat pain, Throat swelling, Other Respiratory: No: Cough, Dry, Shortness of breath, SOB with excertion, Wheezing, Hemoptysis, Pleuritic Pain, Sputum, Wheezing, Other Cardiovascular: No: Chest Pain, Palpitations, Orthopnea, Paroxysmal Noc. Dyspnea, Edema, Lt Headedness, Other Gastrointestinal: No: Nausea, Vomiting, Abdominal Pain, Diarrhea, Constipation, Melena, Hematochezia, Other Genitourinary: No Dysuria, No Frequency, No Incontinence, No Hematuria, No Retention, No Other Musculoskeletal: No: other, neck pain, shoulder pain, arm pain, back pain, hand pain, leg pain, foot pain Skin: No: Rash, Lesions, Jaundice, Bruising, Other Neurological: Weakness Allergies: Coded Allergies: NO KNOWN ALLERGIES (Verified , 08/31/12) Medications Current Medications Medications Dose Ordered Sig/Lela Route Start Time Stop Time Status Last Admin Dose Admin Sodium Chloride 10 ml Q8HR IV 10/06/24 22:00 UNV Lorazepam 0.5 mg Q6HP PRN PO 10/06/24 16:45 UNV Al Hydrox/Mg Hydrox/Simethicone 30 ml Q6HP PRN PO 10/06/24 16:45 UNV Acetaminophen 650 mg Q6HP PRN PO 10/06/24 16:45 UNV Acetaminophen/ Hydrocodone Bitart 1 tab Q4HP PRN PO 10/06/24 16:45 UNV Hydromorphone HCl 0.5 mg Q4HP PRN IV 10/06/24 16:45 UNV Ondansetron HCl 4 mg Q4HP PRN IV 10/06/24 16:45 UNV Diagnostic Test (Pha) 1 strip ACHS 10/06/24 17:00 UNV Insulin Human Regular HS SC 10/06/24 22:00 UNV Insulin Human Regular AC SC 10/06/24 17:00 UNV Dextrose 50 ml UD PRN IV 10/06/24 16:45 UNV Exam General Appearance: Alert, Oriented X3, Cooperative, No acute distress HEENT: Atraumatic Respiratory: Clear to auscultation Cardiovascular: Regular rate, Normal S1, Normal S2 Abdominal: Normal bowel sounds, Soft Extremities: Other (Facial dressing due to biopsy site) Neuro: Normal gait Psych/Mental Status: Mental status NL Assessment/Plan Assessment/Plan # Possible Hepatocellular Carcinoma - MRI Abd - Will need biopsy # Generalized Weakness - Labs # DM2 with hyperglycemia - A1c - SSI # Skin Cancer - As managed by outpatient # Goals of care discussed > 17 mins FULL CODE Plan discussed with: Patient My Orders Orders - FOREIGN SOTO MD Procedure Category Date Status Time Admit ADMIT 10/06/24 Transmitted 16:41 Code Status CODE 10/06/24 Transmitted 16:41 Vital Signs [facility] 10/06/24 In Process 16:41 Review Orders With [facility] 10/06/24 In Process Adm. 16:41 Consistent DIET 10/06/24 Transmitted Carb(Ccho)Diabetes Dinner Sodium Chloride Lock PHA 10/06/24 Logged (Saline Lock Ns) 22:00 Lorazepam Tablet PHA 10/06/24 Logged (Ativan Tablet) 16:45 Alum & Mag PHA 10/06/24 Logged Hydrox-Simethicone 16:45 Acetaminophen Tablet PHA 10/06/24 Logged (Tylenol Tablet) 16:45 Notify Of Changes [facility] 10/06/24 In Process From Base 16:41 Advance Directive [facility] 10/06/24 In Process 16:41 Urinalysis LAB 10/06/24 Logged 16:41 Complete Blood Count LAB 10/06/24 Logged 16:41 Patient Condition ORDERS 10/06/24 Transmitted 16:41 Allergies [facility] 10/06/24 In Process 16:41 Hydrocodone-Acet PHA 10/06/24 Logged 5/325mg Tab ([place] 16:45 Hydromorphone PHA 10/06/24 Logged Injection (Dilaudid 16:45 Ondansetron Hcl PHA 10/06/24 Logged (Zofran) 16:45 Glucose Blood PHA 10/06/24 Logged (Accu-Chek Comfort 17:00 Insulin R (Human) PHA 10/06/24 Logged (Insulin R) 22:00 Insulin R (Human) PHA 10/06/24 Logged (Insulin R) 17:00 Dextrose 50% Syringe PHA 10/06/24 Logged 16:45 Comprehensive LAB 10/06/24 Logged Metabolic Panel 16:41 Prothrombin Time W/ LAB 10/06/24 Logged INR 16:41 Partial LAB 10/06/24 Logged Thromboplastin Time 16:41 Thyroid Stimulating LAB 10/06/24 Logged Hormone 16:45 Hemoglobin A1c LAB 10/06/24 Logged 16:45 Psa Total+% Free LAB 10/06/24 Logged 16:46 Lorazepam 2mg/Ml Inj PHA 10/06/24 Transmitted (Ativan Inj) 17:00 Mri Abd & Plevis W/Wo MRI 10/06/24 Transmitted Cont 16:47 * Radiologist Consult CONS 10/06/24 Transmitted 16:47 Date of Service: Oct 06, 2024 Billing Provider: FOREIGN SOTO MD Common Visit Codes: [id number] INP/OBS CARE (HIGH) Secondary Visit Codes: [id number] CARE PLAN 30 MINUTES FOREIGN SOTO MD Oct 06, 2024 16:50
[2024-10-06] MEDS ORDERED: LORazepam 2MG/ML-1ML VIAL IM ONE (17:00)
[2024-10-06] MEDS: InsuLIN REG 1unit/0.01ml Soln (100units/ml) SC SCH ×2 (17:00→21:13)
[2024-10-06] MEDS: ACCU-CHEK COMFORT CURVE STRIP VI SCH (17:00)
[2024-10-06 17:04] VITALS: PULSE 81; RESP 20; O2SAT 97
[2024-10-06] MEDS ORDERED: GADOTERATE MEG 10 MMOL/20ml INJ (0.5MMOL/ml) IV ONE (17:04)
[2024-10-06 17:13] VITALS: BP 141/77; PULSE 81; RESP 20; TEMP 98.8; O2SAT 97
[2024-10-06 17:24] LABS: Basophils # (auto) 0.2 10 ^3/uL (0-0.2); Basophils % (auto) 1.3 % (0.0-2.0); Eosinophils # (auto) 0.6 10 ^3/uL (0-0.8); Eosinophils % (auto) 4.5 % (0.0-7.0); Hematocrit 41.9 % (41.0-53.0); Hemoglobin 14.6 g/dL (13.5-17.5); Lymphocytes # (auto) 3.8 10 ^3/uL (0.4-5.4); Lymphocytes % (auto) 28.5 % (10.0-50.0); Mean Corpuscular Hemoglobin 32.3 pg (28.0-32.0); Mean Corpuscular Hgb Conc. 34.8 g/dL (32.0-36.0); Mean Corpuscular Volume 92.7 fL (80.0-100.0); Monocytes % (auto) 7.6 % (0.0-12.0); Neutrophils # (auto) 7.7 10 ^3/uL (1.6-8.6); Neutrophils % (auto) 58.1 % (37.0-80.0); Platelet Count (auto) 151 10^3/uL (140-450); Red Blood Cells 4.52 10^6/uL (4.5-5.90); White Blood Cell 13.3 10^3/uL (4.4-10.8)
[2024-10-06 17:28] VITALS: BP 141/77; PULSE 81; RESP 20; TEMP 98.8; O2SAT 97
[2024-10-06 17:38] LABS: Alanine Aminotransferase 28 U/L (7-40); Alkaline Phosphatase 175 U/L (46-116); Anion Gap 8 (5-15); Aspartate Aminotransferase 38 U/L (13-40); BUN/Creatinine Ratio 13.2 (10.0-20.0); Blood Urea Nitrogen 17 mg/dL (9-23); Calcium 9.9 mg/dL (8.7-10.4); Carbon Dioxide 23 mmol/L (20-31); Chloride 110 mmol/L (98-107); Potassium 3.7 mmol/L (3.5-5.1); Sodium 141 mmol/L (136-145)
[2024-10-06 17:39] LABS: Albumin 4.2 g/dL (3.2-4.8); Bilirubin, Total 0.6 mg/dL (0.2-1.0); Total Protein 7.9 g/dL (5.7-8.2)
[2024-10-06 17:43] LABS: INR 1.01 (0.9-1.15); Prothrombin Time 10.7 sec (9.3-11.8)
[2024-10-06 17:44] LABS: Glucose 114 mg/dL (74-106)
[2024-10-06] MEDS: amLODIPine BESYLATE 5 MG TAB PO ONE (18:06)
[2024-10-06 20:03] VITALS: RESP 18; O2SAT 97
[2024-10-06 21:00] VITALS: BP 127/76; PULSE 87; RESP 16; TEMP 98.1; O2SAT 96
[2024-10-06] MEDS: SODIUM CHLOR 0.9% PF (SALINE LOCK) 10ML VIAL/SYR IV SCH (21:13)
[2024-10-07] VITALS (7 sets, daily range): BP systolic 116–126; BP diastolic 54–73; PULSE 61–80; RESP 16–18; TEMP 97.7–98.6; O2SAT 96–97
[2024-10-07 08:06] LABS: PSA Free 0.11 ng/mL; Prostate Specific Antigen 0.5 ng/mL (0.0-4.0)
[2024-10-07] MEDS: LORazepam 2MG/ML-1ML VIAL IV ONE (11:30)
[2024-10-07] MEDS: diphenhdrAMINE HCL 50 MG/1 ML VL IM ONE (11:30)
[2024-10-07] MEDS: amLODIPine BESYLATE 5 MG TAB PO SCH (12:08)
--- NOTE | 2024-10-07 12:54 | DVHPN2 ---
Subjective Seen and examined at bedside, for MRI today. May need Liver biopsy. Changes from previous H/P or p: No Changes Eyes: No Pain, No Vision change, No Conjunctivae inflammation, No Eyelid inflammation, No Other, No Redness ENT: No Ear pain, No Ear discharge, No Nose pain, No Nose discharge, No Nose congestion, No Mouth pain, No Mouth swelling, No Throat pain, No Throat swelling, No Other Cardiovascular: No Chest Pain, No Palpitations, No Orthopnea, No Paroxysmal Noc. Dyspnea, No Edema, No Lt Headedness, No Other Respiratory: No Cough, No Dry, No Shortness of breath, No SOB with excertion, No Wheezing, No Hemoptysis, No Pleuritic Pain, No Sputum, No Other Gastrointestinal: No Nausea, No Vomiting, No Abdominal Pain, No Diarrhea, No Constipation, No Melena, No Hematochezia, No Other Genitourinary: No Dysuria, No Frequency, No Incontinence, No Hematuria, No Retention, No Other Musculoskeletal: No other, No neck pain, No shoulder pain, No arm pain, No back pain, No hand pain, No leg pain, No foot pain Skin: No Rash, No Lesions, No Jaundice, No Bruising, No Other Objective Vitals Vital Signs Date Time Temp Pulse Resp B/P (MAP) Pulse Ox O2 Delivery O2 Flow Rate FiO2 10/07/24 12:11 126/54 10/07/24 09:00 97.9 63 17 97 97.9 10/06/24 20:03 Room Air* 0 21 Intake/Output Intake and Output 10/07/24 06:59 Intake Total 1010 ml Balance 1010 ml Intake Oral 1010 ml Exam Gen: in bed NAD Face: Left side dressing Cvs: N S1/S2, RRR Resp: BLAE Abd: Soft, NT, BS+ Secretary Bookkeeper: AAO x 4 Medications Current Medications Medications Dose Ordered Sig/Lela Route Start Time Stop Time Status Last Admin Dose Admin Sodium Chloride 10 ml Q8HR IV 10/06/24 22:00 10/07/24 05:40 10 ML Lorazepam 0.5 mg Q6HP PRN PO 10/06/24 16:45 Al Hydrox/Mg Hydrox/Simethicone 30 ml Q6HP PRN PO 10/06/24 16:45 Acetaminophen 650 mg Q6HP PRN PO 10/06/24 16:45 Acetaminophen/ Hydrocodone Bitart 1 tab Q4HP PRN PO 10/06/24 16:45 Hydromorphone HCl 0.5 mg Q4HP PRN IV 10/06/24 16:45 Ondansetron HCl 4 mg Q4HP PRN IV 10/06/24 16:45 Diagnostic Test (Pha) 1 strip ACHS 10/06/24 17:00 10/07/24 05:40 1 STRIP Insulin Human Regular HS SC 10/06/24 22:00 Insulin Human Regular AC SC 10/06/24 17:00 Dextrose 50 ml UD PRN IV 10/06/24 16:45 Amlodipine Besylate 5 mg DAILY PO 10/07/24 10:00 10/07/24 12:08 5 MG Laboratory Results Laboratory Tests 10/06/24 17:10 Chemistry Test 10/06/24 17:10 Albumin 4.2 g/dL (3.2-4.8) Calcium Level 9.9 mg/dL (8.7-10.4) Total Protein 7.9 g/dL (5.7-8.2) Coagulation Test 10/06/24 17:10 Prothrombin Time 10.7 sec (9.3-11.8) Prothrombin Time INR 1.01 (0.9-1.15) Activated Partial Thromboplast Time 27.0 SEC (24.5-34.5) LFT Test 10/06/24 17:10 Alanine Aminotransferase (ALT) 28 U/L (7-40) Alkaline Phosphatase 175 U/L (46-116) H Aspartate Amino Transferase (AST) 38 U/L (13-40) Total Bilirubin 0.6 mg/dL (0.2-1.0) HgA1c, TSH Test 10/06/24 17:10 Hemoglobin A1c 7.4 % A1C (<5.7) H Thyroid Stimulating Hormone (TSH) 1.57 uIU/mL (0.55-4.78) Assessment/Plan Assessment/Plan # Possible Hepatocellular Carcinoma - MRI Abd - Will need biopsy # Generalized Weakness - PT Eval # DM2 with hyperglycemia - A1c 7.4 - SSI (Refusing) # Skin Cancer - As managed by outpatient # Goals of care discussed > 17 mins FULL CODE Plan discussed with: Patient My Orders Orders - FOREIGN SOTO MD Procedure Category Date Status Time Admit ADMIT 10/06/24 Transmitted 16:41 Code Status CODE 10/06/24 Transmitted 16:41 Vital Signs [facility] 10/06/24 In Process 16:41 Review Orders With [facility] 10/06/24 In Process . 16:41 Consistent DIET 10/06/24 Transmitted Carb(Ccho)Diabetes Dinner Sodium Chloride Lock PHA 10/06/24 In Process (Saline Lock Ns) 22:00 Lorazepam Tablet PHA 10/06/24 In Process (Ativan Tablet) 16:45 Alum & Mag PHA 10/06/24 In Process Hydrox-Simethicone 16:45 Acetaminophen Tablet PHA 10/06/24 In Process (Tylenol Tablet) 16:45 Notify Md Of Changes [facility] 10/06/24 In Process From Base 16:41 Advance Directive [facility] 10/06/24 In Process 16:41 Urinalysis LAB 10/06/24 Logged 16:41 Patient Condition ORDERS 10/06/24 Transmitted 16:41 Allergies [facility] 10/06/24 In Process 16:41 Hydrocodone-Acet PHA 10/06/24 In Process 5/325mg Tab ([place] 16:45 Hydromorphone PHA 10/06/24 In Process Injection (Dilaudid 16:45 Ondansetron Hcl PHA 10/06/24 In Process (Zofran) 16:45 Glucose Blood PHA 10/06/24 In Process (Accu-Chek Comfort 17:00 Insulin R (Human) PHA 10/06/24 In Process (Insulin R) 22:00 Insulin R (Human) PHA 10/06/24 In Process (Insulin R) 17:00 Dextrose 50% Syringe PHA 10/06/24 In Process 16:45 * Radiologist Consult CONS 10/06/24 Transmitted 16:52 Mri Abdomen W And Wo MRI 10/06/24 Logged 16:47 Amlodipine Tablet PHA 10/07/24 In Process (Norvasc Tablet) 10:00 Urinalysis LAB 10/07/24 Logged 09:13 Microalbumin Random LAB 10/07/24 Logged Urine 09:13 Mri Abdomen W And Wo MRI 10/07/24 Logged 11:10 Date of Service: Oct 07, 2024 Billing Provider: FOREIGN SOTO MD Common Visit Codes: [id number] INP/OBS CARE(HIGH) FOREIGN SOTO MD Oct 07, 2024 12:54
--- NOTE | 2024-10-07 13:44 | DVH ---
MRI ABDOMEN WITH CONTRAST CLINICAL HISTORY: LIVER MASS Technique: Multi planar, multi sequence MR images of the abdomen with and without intravenous contras t. 10/10 cc of Gadavist contrast was injected intravenously. Comparison: None FINDINGS: There is a 1.4 cm calculus in the right renal pelvis. There are additional calculi in the lower pole of the right kidney which are better seen on prior CT. There is no obvious left renal calculus on MRI . There is no significant hydronephrosis. There are multiple bilateral renal cysts, the majority are simple appearing. The largest is in the left kidney measuring 4.4 cm. There are bilateral cysts which demonstrate intrinsic hyperintense T1 signal likely cysts with hemorrhagic/ proteinaceous contents. The largest in the right midpole measuring 1.7 cm. There is no suspicious appearing renal lesion. There is a gallstone in the gallbladder. There is no significant biliary ductal dilatation. There are small hyperintense T2 cystic foci seen in the body of the pancreas, the largest measuring 0 .8 cm. There is no pancreatic ductal dilatation. The liver, spleen, adrenal glands appear within normal limits. The visualized small and large kendra l loops demonstrate normal caliber. There is no free fluid or free air. The lung bases are clear. The soft tissues and osseous structures appear within normal limits. IMPRESSION: 1. Multiple right renal calculi, the largest in the right renal pelvis measuring 1.4 cm. There is no significant hydronephrosis. 2. There are bilateral renal cysts, the majority are simple appearing. There are bilateral cysts with intrinsic hyperintense T1 signal likely cyst with hemorrhagic/ proteinaceous contents. There is no s uspicious appearing hepatic lesion. 3. Small hyperintense T2 cystic foci seen in the body of the pancreas measuring up to 0.8 cm. These p robably represent side branch IPMNs. Continued MR surveillance in 6 months is recommended. There is n o pancreatic ductal dilatation. 4. Cholelithiasis. HS:Y
--- NOTE | 2024-10-07 14:23 | DVHINCON2 ---
Date of service: Oct 07, 2024 Referring Physician Hospitalist Reason for Consultation Multiple large right renal calculi Bladder stone Bilateral renal cysts History of Present Illness I am asked to see this patient for horrible pain. 74-year-old gentleman with a past medical history of type 2 diabetes mellitus, CKD stage 3, Skin Cancer, tobacco abuse, liver mass who originally presented to the clinic sometime ago with complaints of weight loss generalized weakness. In 2022 patient underwent an MRI of the abdomen which showed some capsular mass highly suspicious of hepatocellular carcinoma. Patient advised to have a biopsy done at that time did not have it done. At this time patient continues to lose weight lethargic. Patient is also having loss of appetite. Past Medical History As per HPI Family History: Patient reports no known family medical history. Allergies: Coded Allergies: NO KNOWN ALLERGIES (Verified , 08/31/12) Home Meds Reported Medications Hydrocodone-Acetaminophen (HYDROCODONE BITARTRATE/AC) 1 Tab Tab, PRN 08/31/12 Current Medications Current Medications Medications (Trade) Dose Ordered Sig/Lela Route PRN Reason Start Time Stop Time Status Last Admin Sodium Chloride (Saline Lock Ns) 10 ml Q8HR IV 10/06/24 22:00 10/07/24 05:40 Lorazepam (Ativan Tablet) 0.5 mg Q6HP PRN PO ANXIETY 10/06/24 16:45 Al Hydrox/Mg Hydrox/Simethicone (Maalox Plus) 30 ml Q6HP PRN PO FOR STOMACH DISTRESS 10/06/24 16:45 Acetaminophen (Tylenol Tablet) 650 mg Q6HP PRN PO PAIN SCALE 1-3 OR TEMP>100.4 10/06/24 16:45 Acetaminophen/ Hydrocodone Bitart ([place] 5/325MG Tab) 1 tab Q4HP PRN PO MODERATE PAIN (4-6 PAIN SCALE) 10/06/24 16:45 Hydromorphone HCl (Dilaudid Injection) 0.5 mg Q4HP PRN IV SEVERE PAIN (7-10 PAIN SCALE) 10/06/24 16:45 Ondansetron HCl (Zofran) 4 mg Q4HP PRN IV NAUSEA / VOMITING 10/06/24 16:45 Diagnostic Test (Pha) (Accu-Chek Comfort Curve T) 1 strip ACHS 10/06/24 17:00 10/07/24 05:40 Insulin Human Regular (InsuLIN R) HS SC 10/06/24 22:00 Insulin Human Regular (InsuLIN R) AC SC 10/06/24 17:00 Dextrose 50 ml UD PRN IV Blood Sugar LESS THAN 60 10/06/24 16:45 Amlodipine Besylate (Norvasc Tablet) 5 mg DAILY PO 10/07/24 10:00 10/07/24 12:08 Review of Systems Constitutional: Yes: Weakness, Malaise Eyes: No: Pain, Vision change, Conjunctivae inflammation, Eyelid inflammation, Other, Redness ENT: No: Ear pain, Ear discharge, Nose pain, Nose discharge, Nose congestion, Mouth pain, Mouth swelling, Throat pain, Throat swelling, Other Respiratory: No: Cough, Dry, Shortness of breath, SOB with excertion, Wheezing, Hemoptysis, Pleuritic Pain, Sputum, Wheezing, Other Cardiovascular: No: Chest Pain, Palpitations, Orthopnea, Paroxysmal Noc. Dyspnea, Edema, Lt Headedness, Other Gastrointestinal: No: Nausea, Vomiting, Abdominal Pain, Diarrhea, Constipation, Melena, Hematochezia, Other Genitourinary: No Dysuria, No Frequency, No Incontinence, No Hematuria, No Retention, No Other Musculoskeletal: No: other, neck pain, shoulder pain, arm pain, back pain, hand pain, leg pain, foot pain Skin: No: Rash, Lesions, Jaundice, Bruising, Other Neurological: Weakness Allergies: Coded Allergies: NO KNOWN ALLERGIES (Verified , 08/31/12) Medications Current Medications Medications Dose Ordered Sig/Lela Route Start Time Stop Time Status Last Admin Dose Admin Sodium Chloride 10 ml Q8HR IV 10/06/24 22:00 UNV Lorazepam 0.5 mg Q6HP PRN PO 10/06/24 16:45 UNV Al Hydrox/Mg Hydrox/Simethicone 30 ml Q6HP PRN PO 10/06/24 16:45 UNV Acetaminophen 650 mg Q6HP PRN PO 10/06/24 16:45 UNV Acetaminophen/ Hydrocodone Bitart 1 tab Q4HP PRN PO 10/06/24 16:45 UNV Hydromorphone HCl 0.5 mg Q4HP PRN IV 10/06/24 16:45 UNV Ondansetron HCl 4 mg Q4HP PRN IV 10/06/24 16:45 UNV Diagnostic Test (Pha) 1 strip ACHS 10/06/24 17:00 UNV Insulin Human Regular HS SC 10/06/24 22:00 UNV Insulin Human Regular AC SC 10/06/24 17:00 UNV Dextrose 50 ml UD PRN IV 10/06/24 16:45 UNV Vital Signs Vital Signs Date Time Temp Pulse Resp B/P (MAP) Pulse Ox O2 Delivery O2 Flow Rate FiO2 10/07/24 12:11 126/54 10/07/24 09:00 97.9 63 17 97 97.9 10/06/24 20:03 Room Air* 0 21 Physical Exam Exam Exam General Appearance: Alert, Oriented X3, Cooperative, No acute distress HEENT: Atraumatic Respiratory: Clear to auscultation Cardiovascular: Regular rate, Normal S1, Normal S2 Abdominal: Normal bowel sounds, Soft Extremities: Other (Facial dressing due to biopsy site) Neuro: Normal gait Psych/Mental Status: Mental status NL Labs/Diagnostic Data Labs Test 10/06/24 17:10 Range/Units White Blood Count 13.3 H 4.4-10.8 10^3/uL Red Blood Count 4.52 4.5-5.90 10^6/uL Hemoglobin 14.6 13.5-17.5 g/dL Hematocrit 41.9 41.0-53.0 % Mean Corpuscular Volume 92.7 80.0-100.0 fL Mean Corpuscular Hemoglobin 32.3 H 28.0-32.0 pg Mean Corpuscular Hemoglobin Concent 34.8 32.0-36.0 g/dL Red Cell Distribution Width 15.0 H 11.8-14.3 % Platelet Count 151 140-450 10^3/uL Mean Platelet Volume 8.4 6.9-10.8 fL Neutrophils (%) (Auto) 58.1 37.0-80.0 % Lymphocytes (%) (Auto) 28.5 10.0-50.0 % Monocytes (%) (Auto) 7.6 0.0-12.0 % Eosinophils (%) (Auto) 4.5 0.0-7.0 % Basophils (%) (Auto) 1.3 0.0-2.0 % Neutrophils # (Auto) 7.7 1.6-8.6 10 ^3/uL Lymphocytes # (Auto) 3.8 0.4-5.4 10 ^3/uL Monocytes # (Auto) 1.0 0-1.3 10 ^3/uL Eosinophils # (Auto) 0.6 0-0.8 10 ^3/uL Basophils # (Auto) 0.2 0-0.2 10 ^3/uL Nucleated Red Blood Cells 0.0 % Prothrombin Time 10.7 9.3-11.8 sec Prothrombin Time INR 1.01 0.9-1.15 Activated Partial Thromboplast Time 27.0 24.5-34.5 SEC Sodium Level 141 136-145 mmol/L Potassium Level 3.7 3.5-5.1 mmol/L Chloride Level 110 H 98-107 mmol/L Carbon Dioxide Level 23 20-31 mmol/L Anion Gap 8 5-15 Blood Urea Nitrogen 17 9-23 mg/dL Creatinine 1.29 0.700-1.30 mg/dL Glomerular Filtration Rate Calc 59 >90 mL/min BUN/Creatinine Ratio 13.2 10.0-20.0 Serum Glucose 114 #H 74-106 mg/dL Hemoglobin A1c 7.4 H <5.7 % A1C Calcium Level 9.9 8.7-10.4 mg/dL Total Bilirubin 0.6 0.2-1.0 mg/dL Aspartate Amino Transferase (AST) 38 13-40 U/L Alanine Aminotransferase (ALT) 28 7-40 U/L Alkaline Phosphatase 175 H 46-116 U/L Total Protein 7.9 5.7-8.2 g/dL Albumin 4.2 3.2-4.8 g/dL Free Prostate Specific Antigen 0.11 N/A ng/mL Percent Free Prostate Specific Ag 22.0 . % Prostate Specific Antigen Total 0.5 0.0-4.0 ng/mL Thyroid Stimulating Hormone (TSH) 1.57 0.55-4.78 uIU/mL PATIENT: LESLIE DOBBINS ACCT: [id number] UNIT: [id number] : 1950 LOC: XY ROOM / BED: / AGE / SEX: 74 / M ADM STATUS: REG CLI SERVICE [id number] ORDERING PHYSICIAN: MODESTA VALENTIN NP PROCEDURE(s): ABPL - CT AB PEL WO CON-NO ORAL OR IV REASON: UTI, NUTRIONAL ANEMIAS, CALCULUS OF KIDNEY ORDER NUMBER(s): [id number], ACCESSION NUMBER(s): [id number] Exam: CT CT AB PEL WO CON-NO ORAL OR IV History: UTI, NUTRIONAL ANEMIAS, CALCULUS OF KIDNEY Comparison Study: CT of the abdomen pelvis performed 04/20/2024. TECHNIQUE: Multidetector CT of the abdomen and pelvis was performed from lung bases to ischial tuberosities. Imaging was performed without IV contrast using axial images. Coronal and sagittal reformats were obtained from the axial data set by the technologist. Radiation Dose Information: CT Dose: CTDI volume is 8.71 mGy. Dose-length product is 440.82 mGy*cm FINDINGS: Evaluation of solid organs is limited due to lack of intravenous contrast use. Findings: Lung Bases: No acute or significant lung base finding. Normal heart size. No pleural or pericardial effusion. Liver: The liver is normal in size. No focal lesions. Gallbladder and Biliary Tree: Gallstones. No biliary ductal dilatation. Spleen: Unremarkable Pancreas: The pancreas is grossly normal in appearance. Adrenal Glands: Unremarkable Kidneys: There is a 0.9 cm nonobstructing stone in the right renal pelvis. There are foci of gas in the right renal collecting system similar to prior study. Multiple additional right intrarenal calculi are present measuring up to 6 mm in the lower pole of the right kidney. Bilateral renal cysts. No hydronephrosis. GI Tract: The stomach is grossly normal in appearance. Small bowel and colon are normal in caliber and distribution. Colonic diverticulosis without acute diverticulitis. The appendix is not visualized; however, no secondary findings of acute appendicitis identified. Peritoneal cavity: No pneumoperitoneum. No ascites. Lymphadenopathy: No mesenteric, retroperitoneal or periportal lymphadenopathy. Abdominal Wall and Mesentery: Unremarkable. Vasculature: The visualized abdominal aorta is normal in size and caliber. Evaluation of abdominal and pelvic vessels is limited due to lack of intravenous contrast. Pelvic Organs: Unremarkable Urinary Bladder: There is a 1.9 cm bladder stone. There is air in the urinary bladder. Musculoskeletal: No aggressive focal bony lesions, acute fractures or dislocation. Soft tissues: Unremarkable IMPRESSION: 1. 0.9 cm stone in the right renal pelvis and additional nonobstructing stones in the right kidney. Several foci of air in the right renal collecting system. No right hydronephrosis. Air is also seen in the collecting system on prior CT from earlier this year March 2024. Emphysematous pyelitis is not excluded. Bilateral renal cysts. 2. Cholelithiasis. Radiation optimization: All CT scans at this facility use at least one of these dose optimization techniques: automated exposure control mA and/or kV adjustment per patient size (includes targeted exams where dose is matched to clinical indication) or iterative reconstruction. ATED BY: DANNI GRAHAM MD DICTATED DATE/TIME: 08/27/24 104 SIGNED BY: DANNI GRAHAM MD SIGNED DATE/TIME: 08/27/24 104 CC: Assessment Large right nephrolithiasis Bladder stone, 2 cm Plan/Recommendation Patient needs shock/pulse Cystolitholapaxy, cystoscopy with right ureteral stent placement and right extracorporeal shockwave lithotripsy Plan discussed with: Patient, Other NICA HERNANDEZ MD Oct 07, 2024 14:23
[2024-10-08] VITALS (8 sets, daily range): BP systolic 114–159; BP diastolic 60–89; PULSE 73–120; RESP 16–21; TEMP 98–98.9; O2SAT 94–98
--- NOTE | 2024-10-08 05:53 | DVH ---
CHEST RADIOGRAPH Indication: Pain Technique: Single frontal view of the chest was obtained COMPARISON: None FINDINGS: Lines and Tubes: None Lungs: Clear Pleura: No effusion. No pneumothorax. Cardiomediastinal contours: Unremarkable Bones: Unremarkable IMPRESSION: No acute disease.
--- NOTE | 2024-10-08 09:43 | DVH ---
US LIVER HISTORY: RT LIVER LOBE MASS COMPARISON: 10/07 TECHNIQUE: Transverse and longitudinal grayscale and color sonographic images were obtained of the [facility]. FINDINGS: Liver: - Size: 15.0 cm - Echogenicity: Heterogenous - Surface Contour: Smooth - Liver Lesion(s): 1.8 x 1.6 x 1.9 cm mass like lesion in the liver adjacent to the gallbladder. - Portal Vein: Patent and forward flowing. - Bile Ducts: Normal. Gallbladder: Gallstone in the gallbladder. Other: None IMPRESSION: 1.8 x 1.6 x 1.9 cm mass like lesion in the liver adjacent to the gallbladder.
[2024-10-08] MEDS: MIDAZOLAM HCL 2MG/2ML 2ml VIAL (1mg/ml) IV ONE (09:45)
[2024-10-08] MEDS: fentaNYL CITRATE 100 MCG/2 ML VL IV ONE (09:45)
[2024-10-08] MEDS: GELATIN 1 SPONGE SIZE 50 TOP ONE (09:52)
[2024-10-08] MEDS: MIDAZOLAM HCL 2MG/2ML 2ml VIAL (1mg/ml) ONE (10:02)
[2024-10-08] MEDS: fentaNYL CITRATE 100 MCG/2 ML VL ONE (10:03)
--- NOTE | 2024-10-08 10:54 | DVH ---
US US GUIDANCE FOR NEEDLE PLACEME, HISTORY: LIVER MASS BIOPSY PROCEDURE: Informed consent was obtained. The patient was placed supine on the gurney, and limited US was performed of the liver. IV sedation was administered. The skin over the area of interest was pre pped with chlorhexidine which was allowed to dry and draped in the usual sterile fashion. Time out wa s performed. 1% local lidocaine was administered. With intermittent US guidance, Temno 17 gauge outer coaxial guiding needle was advanced into the tita-gallbladder mass. Single biopsies were obtained us ing Temno 18 gauge inner core biopsy needle. The specimens were placed in formalin and sent to [facility] for analysis. The needle was withdrawn , and the visceral tract embolized with gelfoam pledgets. Post procedural images were obtained. No immediate complication was identified. SEDATION: Dr. Robert Marsh was personally responsible for the administration of moderate sedation during the procedure performed, including the use of an independent trained observer who had no other duties during the procedure. The drugs utilized were IV fentanyl and versed (see nursing log for details). The total time of supervision by the attending physician was approximately 30 minutes. FINDINGS: Irregularly appearing liver mass lesion adjacent to the gallbladder. Intra-procedural image s demonstrate biopsy needle within the margin of targeted lesion. Post procedural images do not demon strate any significant hemorrhage. IMPRESSION: US guided biopsy of the liver mass lesion adjacent to the gallbladder. Pathology results pending. Plan: Bedrest for 4 hours in the supine position.
--- NOTE | 2024-10-08 13:13 | DVHOP2 ---
Operative Report - 2 Report Details Date: 10/08/24 Preop Diagnosis: Right renal calculus, 9 mm largest Bladder calculus 2.5 cm Postop Diagnosis: Same Surgeon: Nica Hernandez Anesthesiologist: Dr. Marino Anesthesia: General Consent: The patient was informed of the risks and benefits of the procedure. These include but are not limited to complications of anesthesia, postoperative infection, incomplete relief of symptoms, recurrence of symptoms, damage to blood vessels, nerves and tendons, deep venous thrombosis, pulmonary embolism and possible need for repeat surgery in the future. Indications for Surgery: Patient with history of right nephrolithiasis and bladder stone known to service is admitted to [facility] with pain Name of Procedure Performed Cystoscopy with right ureteral stent placement Right extracorporeal shockwave lithotripsy Shock pulse cysto litholapaxy Padron placement Procedure Details Procedure Details: Under satisfactory anesthesia, the patient was positioned on the lithotripsy table. Using fluoroscopy the stone was localized. Starting at low energy levels, shockwave treatment was commenced. The energy level was gradually increased and stone was fragmented. The stone appeared to have pulverized well. patient received 2400 shock waves at level six. Prior to ESWL therapy, we placed a right ureteral stent. At the end of the procedure, we started treating the bladder stone. Using the shock pulse system, the bladder calculus was pulverized into fragments, which were removed by suction. Padron catheter was placed and procedure was finished. The patient was then taken off the lithotripsy table and sent to recovery room in stable condition. Disposition: the large 9 mm renal pelvic stone was treated with extracorporeal shockwave lithotripsy to 2400 shocks at level six. Multiple (2-3 ) lower pole stones were not treated due to limit on the shock waves allowable. Patient will need to undergo a 2nd lithotripsy of the residual right kidney stone and stent removal Specimen: Bladder stones Condition Fair Disposition NICA HERNANDEZ MD Oct 08, 2024 13:13
[2024-10-08] MEDS ORDERED: IOHEXOL 300 MG/ML 100ML BOTTLE IJ ONE (13:14)
[2024-10-08] MEDS ORDERED: fentaNYL CITRATE 100 MCG/2 ML VL ONE ×2 (13:18→14:09)
[2024-10-08] MEDS ORDERED: PROPOFOL 10 MG/ML 20 ML IV ONE (13:19)
[2024-10-08] MEDS: ceFAZolin 1GM/50ML 100 ML IV ONE (13:53)
[2024-10-08] MEDS ORDERED: ePHEDrine SULFATE 50 MG/ML AMP ONE (14:09)
--- NOTE | 2024-10-08 14:43 | DVHPN2 ---
Subjective Seen and examined at bedside, s/p Liver Biopsy. For Cystoscopy with right ureteral stent placement, Right extracorporeal shockwave lithotripsy, Shock pulse cysto litholapaxy today by Dr. Quevedo Changes from previous H/P or p: No Changes Eyes: No Pain, No Vision change, No Conjunctivae inflammation, No Eyelid inflammation, No Other, No Redness ENT: No Ear pain, No Ear discharge, No Nose pain, No Nose discharge, No Nose congestion, No Mouth pain, No Mouth swelling, No Throat pain, No Throat swelling, No Other Cardiovascular: No Chest Pain, No Palpitations, No Orthopnea, No Paroxysmal Noc. Dyspnea, No Edema, No Lt Headedness, No Other Respiratory: No Cough, No Dry, No Shortness of breath, No SOB with excertion, No Wheezing, No Hemoptysis, No Pleuritic Pain, No Sputum, No Other Gastrointestinal: No Nausea, No Vomiting, No Abdominal Pain, No Diarrhea, No Constipation, No Melena, No Hematochezia, No Other Genitourinary: No Dysuria, No Frequency, No Incontinence, No Hematuria, No Retention, No Other Musculoskeletal: No other, No neck pain, No shoulder pain, No arm pain, No back pain, No hand pain, No leg pain, No foot pain Skin: No Rash, No Lesions, No Jaundice, No Bruising, No Other Objective Vitals Vital Signs Date Time Temp Pulse Resp B/P (MAP) Pulse Ox O2 Delivery O2 Flow Rate FiO2 10/08/24 10:03 138/74 10/08/24 09:00 98.3 79 17 98 98.3 10/07/24 20:00 Room Air* 0 21 Intake/Output Intake and Output 10/08/24 07:00 Intake Total 2180 ml Output Total 850 ml Balance 1330 ml Intake Oral 2180 ml Output Urine Total 850 ml Exam Gen: in bed NAD Face: Left side healing wound Cvs: N S1/S2, RRR Resp: BLAE Abd: Soft, NT, BS+ Major Account Manager: AAO x 4 Medications Current Medications Medications Dose Ordered Sig/Lela Route Start Time Stop Time Status Last Admin Dose Admin Sodium Chloride 10 ml Q8HR IV 10/06/24 22:00 10/08/24 06:19 10 ML Lorazepam 0.5 mg Q6HP PRN PO 10/06/24 16:45 Al Hydrox/Mg Hydrox/Simethicone 30 ml Q6HP PRN PO 10/06/24 16:45 Acetaminophen 650 mg Q6HP PRN PO 10/06/24 16:45 Acetaminophen/ Hydrocodone Bitart 1 tab Q4HP PRN PO 10/06/24 16:45 Hydromorphone HCl 0.5 mg Q4HP PRN IV 10/06/24 16:45 Ondansetron HCl 4 mg Q4HP PRN IV 10/06/24 16:45 Diagnostic Test (Pha) 1 strip ACHS 10/06/24 17:00 10/08/24 06:20 1 STRIP Insulin Human Regular HS SC 10/06/24 22:00 Insulin Human Regular AC SC 10/06/24 17:00 Dextrose 50 ml UD PRN IV 10/06/24 16:45 Amlodipine Besylate 5 mg DAILY PO 10/07/24 10:00 10/07/24 12:08 5 MG Laboratory Results Laboratory Tests 10/06/24 17:10 Assessment/Plan Assessment/Plan # Bladder Stone - Cystoscopy with right ureteral stent placement, Right extracorporeal shockwave lithotripsy, Shock pulse cysto litholapaxy # Possible Hepatocellular Carcinoma - Biopsy # Generalized Weakness - PT Eval # DM2 with hyperglycemia - A1c 7.4 - SSI (Refusing) # Skin Cancer - As managed by outpatient # Goals of care discussed > 17 mins FULL CODE Plan discussed with: Patient My Orders Orders - FOREIGN SOTO MD Procedure Category Date Status Time * Urology Consult CONS 10/07/24 Transmitted 16:37 * Radiologist Consult CONS 10/08/24 Transmitted 10:35 Date of Service: Oct 08, 2024 Billing Provider: FOREIGN SOTO MD Common Visit Codes: [id number] INP/OBS CARE(HIGH) FOREIGN SOTO MD Oct 08, 2024 14:43
[2024-10-08] MEDS ORDERED: ONDANSETRON HCL 4 MG/2 ML VIAL IV ONE (15:00)
[2024-10-08] MEDS ORDERED: ACETAMINOPHEN IV 1000 MG/100ML (10MG/ML) IV PRN (15:00)
[2024-10-08] MEDS ORDERED: HYDROmorphone HCL 2 MG/ML VL/or syr IV PRN (15:00)
[2024-10-09] VITALS (7 sets, daily range): BP systolic 111–149; BP diastolic 64–92; PULSE 83–96; RESP 16–19; TEMP 97.4–99; O2SAT 91–98
[2024-10-09] MEDS: HYDROcodone-ACET 5/325MG TAB PO PRN (00:27)
--- NOTE | 2024-10-09 14:21 | DVHPN2 ---
Subjective Seen and examined at bedside, s/p Liver Biopsy and Cystoscopy with right ureteral stent placement, Right extracorporeal shockwave lithotripsy, Shock pulse cysto litholapaxy by Dr. Quevedo (10/08/24). Padron in place with bladder irrigation, draper pink urine Changes from previous H/P or p: No Changes Eyes: No Pain, No Vision change, No Conjunctivae inflammation, No Eyelid inflammation, No Other, No Redness ENT: No Ear pain, No Ear discharge, No Nose pain, No Nose discharge, No Nose congestion, No Mouth pain, No Mouth swelling, No Throat pain, No Throat swelling, No Other Cardiovascular: No Chest Pain, No Palpitations, No Orthopnea, No Paroxysmal Noc. Dyspnea, No Edema, No Lt Headedness, No Other Respiratory: No Cough, No Dry, No Shortness of breath, No SOB with excertion, No Wheezing, No Hemoptysis, No Pleuritic Pain, No Sputum, No Other Gastrointestinal: No Nausea, No Vomiting, No Abdominal Pain, No Diarrhea, No Constipation, No Melena, No Hematochezia, No Other Genitourinary: No Dysuria, No Frequency, No Incontinence, No Hematuria, No Retention, No Other Musculoskeletal: No other, No neck pain, No shoulder pain, No arm pain, No back pain, No hand pain, No leg pain, No foot pain Skin: No Rash, No Lesions, No Jaundice, No Bruising, No Other Objective Vitals Vital Signs Date Time Temp Pulse Resp B/P (MAP) Pulse Ox O2 Delivery O2 Flow Rate FiO2 10/09/24 10:00 119/92 10/09/24 09:00 97.9 89 17 98 97.9 10/09/24 08:00 Room Air* 0 21 Intake/Output Intake and Output 10/09/24 07:00 Intake Total 850 ml Output Total 5400 ml Balance -4550 ml Intake Oral 650 ml IV Total 200 ml Output Urine Total 5400 ml Exam Gen: in bed NAD Face: Left side healing wound Cvs: N S1/S2, RRR Resp: BLAE Abd: Soft, NT, BS+ Shuttleless Loom Weaver: AAO x 4 Medications Current Medications Medications Dose Ordered Sig/Lela Route Start Time Stop Time Status Last Admin Dose Admin Sodium Chloride 10 ml Q8HR IV 10/06/24 22:00 10/09/24 06:10 10 ML Lorazepam 0.5 mg Q6HP PRN PO 10/06/24 16:45 Al Hydrox/Mg Hydrox/Simethicone 30 ml Q6HP PRN PO 10/06/24 16:45 Acetaminophen 650 mg Q6HP PRN PO 10/06/24 16:45 Acetaminophen/ Hydrocodone Bitart 1 tab Q4HP PRN PO 10/06/24 16:45 10/09/24 12:44 1 TAB Hydromorphone HCl 0.5 mg Q4HP PRN IV 10/06/24 16:45 Ondansetron HCl 4 mg Q4HP PRN IV 10/06/24 16:45 Diagnostic Test (Pha) 1 strip ACHS 10/06/24 17:00 10/09/24 11:53 1 STRIP Insulin Human Regular HS SC 10/06/24 22:00 Insulin Human Regular AC SC 10/06/24 17:00 Dextrose 50 ml UD PRN IV 10/06/24 16:45 Amlodipine Besylate 5 mg DAILY PO 10/07/24 10:00 10/07/24 12:08 5 MG Laboratory Results Laboratory Tests 10/06/24 17:10 Assessment/Plan Assessment/Plan # Bladder Stone - s/p Cystoscopy with right ureteral stent placement, Right extracorporeal shockwave lithotripsy, Shock pulse cysto litholapaxy (10/08/24) # Possible Hepatocellular Carcinoma - s/p Biopsy # Generalized Weakness - PT Eval # DM2 with hyperglycemia - A1c 7.4 - SSI (Refusing) # Skin Cancer - As managed by outpatient # Goals of care discussed > 17 mins FULL CODE Plan discussed with: Patient My Orders Orders - FOREIGN SOTO MD Procedure Category Date Status Time Microalbumin Random LAB 10/09/24 Transmitted Urine 14:17 Urinalysis LAB 10/09/24 Transmitted 14:17 Date of Service: Oct 09, 2024 Billing Provider: FOREIGN SOTO MD Common Visit Codes: [id number] INP/OBS CARE(MOD) FOREIGN SOTO MD Oct 09, 2024 14:21
[2024-10-09] MEDS: cefTRIAXone 2GM/50ML D5W 50 ML IV ONE (14:30)
[2024-10-09 18:06] LABS: Urine Bacteria None Seen /hpf (None Seen)
[2024-10-09 18:18] LABS: Urine Blood 3+ /uL (Negative); Urine Clarity Ex.Turbid (Clear); Urine Color Brown (Yellow); Urine Mucus FEW (None Seen); Urine Protein, UAD 2+ (Negative); Urine Specific Gravity 1.015 (1.001-1.035); Urine Urobilinogen Normal (Negative); Urine WBC 1383 /hpf (0 - 3); Urine WBC Clumps PRESENT /hpf (None Seen)
[2024-10-09 18:27] LABS: Creatinine, Urine 81.52 mg/dL (30.0-125.0)
[2024-10-10 01:00] VITALS: BP 128/50; PULSE 90; RESP 17; TEMP 97.3; O2SAT 94
[2024-10-10 06:34] LABS: Basophils # (auto) 0.1 10 ^3/uL (0-0.2); Basophils % (auto) 0.5 % (0.0-2.0); Eosinophils # (auto) 0.4 10 ^3/uL (0-0.8); Eosinophils % (auto) 3.1 % (0.0-7.0); Lymphocytes # (auto) 1.1 10 ^3/uL (0.4-5.4); Lymphocytes % (auto) 8.7 % (10.0-50.0); Mean Corpuscular Hemoglobin 32.1 pg (28.0-32.0); Mean Corpuscular Hgb Conc. 34.2 g/dL (32.0-36.0); Mean Corpuscular Volume 93.8 fL (80.0-100.0); Monocytes # (auto) 1.4 10 ^3/uL (0-1.3); Monocytes % (auto) 10.9 % (0.0-12.0); Neutrophils # (auto) 10.1 10 ^3/uL (1.6-8.6); Neutrophils % (auto) 76.8 % (37.0-80.0); Platelet Count (auto) 110 10^3/uL (140-450); Red Blood Cells 4.37 10^6/uL (4.5-5.90); Red Cell Distribution Width 14.9 % (11.8-14.3); White Blood Cell 13.1 10^3/uL (4.4-10.8)
[2024-10-10 06:43] LABS: Anion Gap 6 (5-15); Carbon Dioxide 23 mmol/L (20-31); Chloride 106 mmol/L (98-107); Potassium 4.1 mmol/L (3.5-5.1)
[2024-10-10 06:45] LABS: Calcium 9.6 mg/dL (8.7-10.4)
[2024-10-10 06:49] LABS: Blood Urea Nitrogen 22 mg/dL (9-23); Glucose 153 mg/dL (74-106)
[2024-10-10 06:55] LABS: Sodium 135 mmol/L (136-145)
[2024-10-10] MEDS: SODIUM CHLORIDE 0.9% 1,000 ML IV ONE (08:30)
[2024-10-10 09:00] VITALS: BP 124/62; PULSE 101; RESP 18; TEMP 98.3; O2SAT 95
--- NOTE | 2024-10-10 10:26 | DVHPN2 ---
Subjective Seen and examined at bedside, s/p Liver Biopsy and Cystoscopy with right ureteral stent placement, Right extracorporeal shockwave lithotripsy, Shock pulse cysto litholapaxy by Dr. Quevedo (10/08/24). Becker in place with bladder irrigation, becker is clearing up. Changes from previous H/P or p: No Changes Eyes: No Pain, No Vision change, No Conjunctivae inflammation, No Eyelid inflammation, No Other, No Redness ENT: No Ear pain, No Ear discharge, No Nose pain, No Nose discharge, No Nose congestion, No Mouth pain, No Mouth swelling, No Throat pain, No Throat swelling, No Other Cardiovascular: No Chest Pain, No Palpitations, No Orthopnea, No Paroxysmal Noc. Dyspnea, No Edema, No Lt Headedness, No Other Respiratory: No Cough, No Dry, No Shortness of breath, No SOB with excertion, No Wheezing, No Hemoptysis, No Pleuritic Pain, No Sputum, No Other Gastrointestinal: No Nausea, No Vomiting, No Abdominal Pain, No Diarrhea, No Constipation, No Melena, No Hematochezia, No Other Genitourinary: No Dysuria, No Frequency, No Incontinence, No Hematuria, No Retention, No Other Musculoskeletal: No other, No neck pain, No shoulder pain, No arm pain, No back pain, No hand pain, No leg pain, No foot pain Skin: No Rash, No Lesions, No Jaundice, No Bruising, No Other Objective Vitals Vital Signs Date Time Temp Pulse Resp B/P (MAP) Pulse Ox O2 Delivery O2 Flow Rate FiO2 10/10/24 01:00 97.3 90 17 128/50 (76) 94 97.3 10/09/24 20:00 Room Air* 0 21 Intake/Output Intake and Output 10/10/24 07:00 Intake Total 1600 ml Output Total 7050 ml Balance -5450 ml Intake Oral 1600 ml Output Urine Total 7050 ml # Bowel Movements 1 Exam Gen: in bed NAD Face: Left side healing wound Cvs: N S1/S2, RRR Resp: BLAE Abd: Soft, NT, BS+ Loom Blower: AAO x 4 Medications Current Medications Medications Dose Ordered Sig/Lela Route Start Time Stop Time Status Last Admin Dose Admin Sodium Chloride 10 ml Q8HR IV 10/06/24 22:00 10/10/24 05:16 10 ML Lorazepam 0.5 mg Q6HP PRN PO 10/06/24 16:45 Al Hydrox/Mg Hydrox/Simethicone 30 ml Q6HP PRN PO 10/06/24 16:45 Acetaminophen 650 mg Q6HP PRN PO 10/06/24 16:45 Acetaminophen/ Hydrocodone Bitart 1 tab Q4HP PRN PO 10/06/24 16:45 10/09/24 22:14 1 TAB Hydromorphone HCl 0.5 mg Q4HP PRN IV 10/06/24 16:45 Ondansetron HCl 4 mg Q4HP PRN IV 10/06/24 16:45 Diagnostic Test (Pha) 1 strip ACHS 10/06/24 17:00 10/10/24 06:06 1 STRIP Insulin Human Regular HS SC 10/06/24 22:00 Insulin Human Regular AC SC 10/06/24 17:00 Dextrose 50 ml UD PRN IV 10/06/24 16:45 Amlodipine Besylate 5 mg DAILY PO 10/07/24 10:00 10/07/24 12:08 5 MG Ceftriaxone Sodium 50 ml @ 100 mls/hr DAILY@09 IV 10/10/24 09:00 Laboratory Results Laboratory Tests 10/10/24 05:41 Chemistry Test 10/10/24 05:41 Calcium Level 9.6 mg/dL (8.7-10.4) Urinalysis Test 10/09/24 17:40 Urine Color Brown (Yellow) H Urine Clarity Ex.turbid (Clear) Urine pH 6.0 (5.0-9.0) Urine Specific [place] 1.015 (1.001-1.035) Urine Protein 2+ (Negative) H Urine Ketones Negative (Negative) Urine Blood 3+ /uL (Negative) H Urine Nitrite Negative (Negative) Urine Bilirubin Negative (Negative) Urine Urobilinogen Normal mg/dL (Negative) Urine Leukocyte Esterase 3+ /uL (Negative) Urine RBC 1292 /hpf (0 - 3) Urine WBC 1383 /hpf (0 - 3) Urine WBC Clumps Present /hpf (None Seen) Urine Squamous Epithelial Cells Few /hpf (<5) Urine Bacteria None seen /hpf (None Seen) Urine Mucus Few (None Seen) Urine Creatinine 81.52 mg/dL (30.0-125.0) Urine Microalbumin 500.0 mg/L (<30.0) H Urine Microalbumin/Creatinine Ratio 613.00 Urine Glucose Trace mg/dL (Normal) Assessment/Plan Assessment/Plan # Bladder Stone - s/p Cystoscopy with right ureteral stent placement, Right extracorporeal shockwave lithotripsy, Shock pulse cysto litholapaxy (10/08/24) # Possible Hepatocellular Carcinoma - s/p Biopsy, await results # Generalized Weakness - PT Eval # DM2 with hyperglycemia - A1c 7.4 - SSI (Refusing) # Skin Cancer - As managed by outpatient # Goals of care discussed > 17 mins FULL CODE Plan discussed with: Patient My Orders Orders - FOREIGN SOTO MD Procedure Category Date Status Time Ceftriaxone 1gm/50ml PHA 10/10/24 In Process D5w (Rocephin) 09:00 Sodium Chloride 0.9% PHA 10/10/24 In Process 08:30 Basic Metabolic Panel LAB 10/11/24 Verified 04:00 Complete Blood Count LAB 10/11/24 Verified 04:00 Date of Service: Oct 10, 2024 Billing Provider: FOREIGN SOTO MD Common Visit Codes: [id number] INP/OBS CARE(MOD) FOREIGN SOTO MD Oct 10, 2024 10:26
[2024-10-10] MEDS: cefTRIAXone 1GM/50ML D5W 50 ML IV SCH (12:04)
[2024-10-10 13:00] VITALS: BP 118/73; PULSE 100; RESP 16; TEMP 98.5; O2SAT 96
[2024-10-10 17:00] VITALS: BP 128/77; PULSE 84; RESP 18; TEMP 98.4; O2SAT 97
[2024-10-11 01:00] VITALS: BP 110/62; PULSE 77; RESP 19; TEMP 98.3; O2SAT 93
[2024-10-11 05:00] VITALS: BP 137/70; PULSE 70; RESP 16; TEMP 97.9; O2SAT 97
[2024-10-11 06:43] LABS: Basophils # (auto) 0.1 10 ^3/uL (0-0.2); Basophils % (auto) 0.7 % (0.0-2.0); Eosinophils # (auto) 0.4 10 ^3/uL (0-0.8); Eosinophils % (auto) 3.6 % (0.0-7.0); Hematocrit 41.9 % (41.0-53.0); Hemoglobin 14.7 g/dL (13.5-17.5); Lymphocytes # (auto) 1.9 10 ^3/uL (0.4-5.4); Lymphocytes % (auto) 15.9 % (10.0-50.0); Mean Corpuscular Hemoglobin 32.8 pg (28.0-32.0); Mean Corpuscular Hgb Conc. 35.1 g/dL (32.0-36.0); Mean Corpuscular Volume 93.3 fL (80.0-100.0); Monocytes # (auto) 1.4 10 ^3/uL (0-1.3); Neutrophils % (auto) 67.8 % (37.0-80.0); Platelet Count (auto) 116 10^3/uL (140-450); Red Blood Cells 4.49 10^6/uL (4.5-5.90); Red Cell Distribution Width 14.5 % (11.8-14.3); White Blood Cell 11.7 10^3/uL (4.4-10.8)
[2024-10-11 06:44] LABS: Anion Gap 8 (5-15); Carbon Dioxide 23 mmol/L (20-31); Chloride 109 mmol/L (98-107); Potassium 4.9 mmol/L (3.5-5.1); Sodium 140 mmol/L (136-145)
[2024-10-11 06:45] LABS: Calcium 9.7 mg/dL (8.7-10.4)
[2024-10-11 06:51] LABS: BUN/Creatinine Ratio 16.1 (10.0-20.0); Blood Urea Nitrogen 20 mg/dL (9-23); Glucose 138 mg/dL (74-106)
[2024-10-11 09:00] VITALS: BP 133/72; PULSE 82; RESP 16; TEMP 97.6; O2SAT 98
[2024-10-11 13:00] VITALS: BP 135/67; PULSE 91; RESP 20; TEMP 97.8; O2SAT 96
[2024-10-11] MEDS ORDERED: CIP500T PO (14:08)
--- NOTE | 2024-10-11 14:12 | DVHDS2 ---
Discharge Summary Date of Admission Oct 06, 2024 at 14:45 Date of Discharge: Oct 11, 2024 Admitting Diagnosis Bladder Stone Labs/Diagnostic Data: Laboratory Results Test 10/11/24 11:10 10/11/24 05:50 10/09/24 17:40 10/08/24 17:00 POC Glucose 228 mg/dl (70-106) White Blood Count 11.7 10^3/uL (4.4-10.8) Red Blood Count 4.49 10^6/uL (4.5-5.90) Hemoglobin 14.7 g/dL (13.5-17.5) Hematocrit 41.9 % (41.0-53.0) Mean Corpuscular Volume 93.3 fL (80.0-100.0) Mean Corpuscular Hemoglobin 32.8 pg (28.0-32.0) Mean Corpuscular Hemoglobin Concent 35.1 g/dL (32.0-36.0) Red Cell Distribution Width 14.5 % (11.8-14.3) Platelet Count 116 10^3/uL (140-450) Mean Platelet Volume 8.8 fL (6.9-10.8) Neutrophils (%) (Auto) 67.8 % (37.0-80.0) Lymphocytes (%) (Auto) 15.9 % (10.0-50.0) Monocytes (%) (Auto) 12.0 % (0.0-12.0) Eosinophils (%) (Auto) 3.6 % (0.0-7.0) Basophils (%) (Auto) 0.7 % (0.0-2.0) Neutrophils # (Auto) 8.0 10 ^3/uL (1.6-8.6) Lymphocytes # (Auto) 1.9 10 ^3/uL (0.4-5.4) Monocytes # (Auto) 1.4 10 ^3/uL (0-1.3) Eosinophils # (Auto) 0.4 10 ^3/uL (0-0.8) Basophils # (Auto) 0.1 10 ^3/uL (0-0.2) Nucleated Red Blood Cells 0.0 % Sodium Level 140 mmol/L (136-145) Potassium Level 4.9 mmol/L (3.5-5.1) Chloride Level 109 mmol/L (98-107) Carbon Dioxide Level 23 mmol/L (20-31) Anion Gap 8 (5-15) Blood Urea Nitrogen 20 mg/dL (9-23) Creatinine 1.24 mg/dL (0.700-1.30) Glomerular Filtration Rate Calc 62 mL/min (>90) BUN/Creatinine Ratio 16.1 (10.0-20.0) Serum Glucose 138 mg/dL (74-106) Calcium Level 9.7 mg/dL (8.7-10.4) Urine Color Brown (Yellow) Urine Clarity Ex.turbid (Clear) Urine pH 6.0 (5.0-9.0) Urine Specific [place] 1.015 (1.001-1.035) Urine Protein 2+ (Negative) Urine Ketones Negative (Negative) Urine Blood 3+ /uL (Negative) Urine Nitrite Negative (Negative) Urine Bilirubin Negative (Negative) Urine Urobilinogen Normal mg/dL (Negative) Urine Leukocyte Esterase 3+ /uL (Negative) Urine RBC 1292 /hpf (0 - 3) Urine WBC 1383 /hpf (0 - 3) Urine WBC Clumps Present /hpf (None Seen) Urine Squamous Epithelial Cells Few /hpf (<5) Urine Bacteria None seen /hpf (None Seen) Urine Mucus Few (None Seen) Urine Creatinine 81.52 mg/dL (30.0-125.0) Urine Microalbumin 500.0 mg/L (<30.0) Urine Microalbumin/Creatinine Ratio 613.00 Urine Glucose Trace mg/dL (Normal) Test 10/06/24 17:10 Prothrombin Time 10.7 sec (9.3-11.8) Prothrombin Time INR 1.01 (0.9-1.15) Activated Partial Thromboplast Time 27.0 SEC (24.5-34.5) Hemoglobin A1c 7.4 % A1C (<5.7) Total Bilirubin 0.6 mg/dL (0.2-1.0) Aspartate Amino Transferase (AST) 38 U/L (13-40) Alanine Aminotransferase (ALT) 28 U/L (7-40) Alkaline Phosphatase 175 U/L (46-116) Total Protein 7.9 g/dL (5.7-8.2) Albumin 4.2 g/dL (3.2-4.8) Free Prostate Specific Antigen 0.11 ng/mL (N/A) Percent Free Prostate Specific Ag 22.0 % (.) Prostate Specific Antigen Total 0.5 ng/mL (0.0-4.0) Thyroid Stimulating Hormone (TSH) 1.57 uIU/mL (0.55-4.78) Other Laboratory Tests 10/11/24 05:50 Brief Hx & Hospital Course: Patient is a 74-year-old gentleman with a past medical history of type 2 diabetes mellitus, CKD stage 3, Skin Cancer, tobacco abuse, liver mass who originally presented to the clinic sometime ago with complaints of weight loss generalized weakness. In 2022 patient underwent an MRI of the abdomen which showed some capsular mass highly suspicious of hepatocellular carcinoma. Patient advised to have a biopsy done at that time did not have it done. Patient had an MRI done showing bladder stone. Was seen in Urology consult underwent surgery, see operative report below. Patient also underwent liver biopsy. Will see me in clinic as outpatient. Operations or Procedures Operative Report - 2 Report Details Date: 10/08/24 Preop Diagnosis: Right renal calculus, 9 mm largest Bladder calculus 2.5 cm Postop Diagnosis: Same Surgeon: Roni Quevedo Anesthesiologist: Dr. Marino Anesthesia: General Consent: The patient was informed of the risks and benefits of the procedure. These include but are not limited to complications of anesthesia, postoperative infection, incomplete relief of symptoms, recurrence of symptoms, damage to blood vessels, nerves and tendons, deep venous thrombosis, pulmonary embolism and possible need for repeat surgery in the future. Indications for Surgery: Patient with history of right nephrolithiasis and bladder stone known to service is admitted to [facility] with pain Name of Procedure Performed Cystoscopy with right ureteral stent placement Right extracorporeal shockwave lithotripsy Shock pulse cysto litholapaxy Padron placement Procedure Details Procedure Details: Under satisfactory anesthesia, the patient was positioned on the lithotripsy table. Using fluoroscopy the stone was localized. Starting at low energy levels, shockwave treatment was commenced. The energy level was gradually increased and stone was fragmented. The stone appeared to have pulverized well. patient received 2400 shock waves at level six. Prior to ESWL therapy, we placed a right ureteral stent. At the end of the procedure, we started treating the bladder stone. Using the shock pulse system, the bladder calculus was pulverized into fragments, which were removed by suction. Padron catheter was placed and procedure was finished. The patient was then taken off the lithotripsy table and sent to recovery room in stable condition. Disposition: the large 9 mm renal pelvic stone was treated with extracorporeal shockwave lithotripsy to 2400 shocks at level six. Multiple (2-3 ) lower pole stones were not treated due to limit on the shock waves allowable. Patient will need to undergo a 2nd lithotripsy of the residual right kidney stone and stent removal Specimen: Bladder stones Condition at Discharge: Stable Final Diagnosis/Problems List # Bladder Stone - s/p Cystoscopy with right ureteral stent placement, Right extracorporeal shockwave lithotripsy, Shock pulse cysto litholapaxy (10/08/24) # Possible Hepatocellular Carcinoma - s/p Biopsy, await results # Generalized Weakness # DM2 with hyperglycemia - A1c 7.4 # Skin Cancer - As managed by outpatient Discharge Disposition: Home Discharge Instruct/Medications Diet: Regular Activity: Light activity Follow Up/Referral: Dr. Montes in 1 week Medications: See [facility] Discharge Statement: "Patient was advised to return to the ER or call 911 if any headaches, dizziness, shortness of breath, chest pain, abdominal pain, bleeding, fevers, or worsening of medical condition. Patient was counseled about treatment plan, medications, possible side effects, patientverbalized understanding. All questions were answered to the best of my ability. This discharge took greater then 30 minutes in planning, reviewing documentation, counseling the patient, and discussing with other team members." ASSESSMENT ASSESSMENT Assessment Same Date of Service: Oct 11, 2024 Billing Provider: FOREIGN MONTES MD Common Visit Codes: [id number] DISCH DAY >30min FOREIGN MONTES MD Oct 11, 2024 14:12
[2024-10-11 15:16] VITALS: BP 135/67; PULSE 91; RESP 20; TEMP 97.8; O2SAT 96
== END 2024-10-11 16:42 | disposition home or self-care (01) | DRG 660 ==
LOC: CENTRAL 14:45
PROVIDERS: ADMIT Internal Medicine; ATTEND Internal Medicine
PROC: 0FB03ZX Excision of Liver, Percutaneous Approach, Diagnostic (ICD-10-PCS; 2024-10-08)
PROC: 0TCB3ZZ Extirpation of Matter from Bladder, Percutaneous Approach (ICD-10-PCS; principal; 2024-10-08 13:53)
PROC: 0T768DZ Dilation of Right Ureter with Intraluminal Device, Via Natural or Artificial Opening Endoscopic (ICD-10-PCS; 2024-10-08 13:53)
DX: N21.0 Calculus in bladder (principal); C22.0 Liver cell carcinoma; E11.65 Type 2 diabetes mellitus with hyperglycemia; N20.0 Calculus of kidney; C44.90 Unspecified malignant neoplasm of skin, unspecified; Z85.828 Personal history of other malignant neoplasm of skin; Z87.891 Personal history of nicotine dependence; Z79.899 Other long term (current) drug therapy
CPT/HCPCS: 36415; 47000; 71045; 74183; 76705; 76942; 80048; 80053; 81001; 82043; 82360; 82570; 82962; 83036; 84154; 84443; 85025; 85610; 85730; 86850; 86900; 86901; G0378; J0131; J2250; J2704

== ENCOUNTER → 2025-01-18 | Outpatient (CLI) | payer MEDICARE, MEDICAID ==
[~2025-01-18] MED LIST changes: +CIP500T PO; -HYDR2.5T38
[2025-01-18 13:13] LABS: Basophils # (auto) 0.1 10 ^3/uL (0-0.2); Basophils % (auto) 1.3 % (0.0-2.0); Eosinophils # (auto) 0.6 10 ^3/uL (0-0.8); Eosinophils % (auto) 5.6 % (0.0-7.0); Hematocrit 44.5 % (41.0-53.0); Lymphocytes # (auto) 2.8 10 ^3/uL (0.4-5.4); Lymphocytes % (auto) 24.4 % (10.0-50.0); Mean Corpuscular Hemoglobin 31.7 pg (28.0-32.0); Mean Corpuscular Hgb Conc. 33.6 g/dL (32.0-36.0); Mean Corpuscular Volume 94.2 fL (80.0-100.0); Monocytes # (auto) 0.9 10 ^3/uL (0-1.3); Monocytes % (auto) 8.4 % (0.0-12.0); Neutrophils # (auto) 6.8 10 ^3/uL (1.6-8.6); Neutrophils % (auto) 60.3 % (37.0-80.0); Platelet Count (auto) 136 10^3/uL (140-450); Red Blood Cells 4.72 10^6/uL (4.5-5.90); White Blood Cell 11.3 10^3/uL (4.4-10.8)
[2025-01-18 13:24] LABS: Alanine Aminotransferase 28 U/L (7-40); Albumin 4.6 g/dL (3.2-4.8); Anion Gap 8 (5-15); Aspartate Aminotransferase 24 U/L (13-40); BUN/Creatinine Ratio 11.7 (10.0-20.0); Bilirubin, Total 0.7 mg/dL (0.2-1.0); Blood Urea Nitrogen 18 mg/dL (9-23); Calcium 10.4 mg/dL (8.7-10.4); Carbon Dioxide 25 mmol/L (20-31); Chloride 106 mmol/L (98-107); Sodium 139 mmol/L (136-145); Total Protein 7.6 g/dL (5.7-8.2)
[2025-01-18 13:36] LABS: Alkaline Phosphatase 132 U/L (46-116); Glucose 110 mg/dL (74-106)
[2025-01-18 13:39] LABS: Urine Bacteria FEW /hpf (None Seen); Urine Blood 3+ /uL (Negative); Urine Clarity Turbid (Clear); Urine Color Colorless (Yellow); Urine Protein, UAD 1+ (Negative); Urine Specific Gravity 1.011 (1.001-1.035); Urine Squamous Epithelial Cell FEW /hpf (<5); Urine Urobilinogen Normal (Negative); Urine WBC 44 /HPF (0-3); Urine pH 6.5 (5.0-9.0)
== END | disposition home or self-care (01) ==
LOC: LAB 12:36
PROVIDERS: ATTEND Internal Medicine
DX: E11.22 Type 2 diabetes mellitus with diabetic chronic kidney disease (principal)
CPT/HCPCS: 36415; 80053; 81001; 82043; 83036; 84443; 85025

== ENCOUNTER 2025-06-13 09:42 | Outpatient (CLI) | payer MEDICARE, MEDICAID ==
[2025-06-13 10:34] LABS: Hematocrit 44.1 % (41.0-53.0); Hemoglobin 15.5 g/dL (13.5-17.5); Mean Corpuscular Hemoglobin 32.6 pg (28.0-32.0); Mean Corpuscular Volume 92.4 fL (80.0-100.0); Nucleated Red Blood Cells % 0.0 %
[2025-06-13 11:51] LABS: Urine Protein, UAD 1+ (Negative); Urine WBC Clumps PRESENT /hpf (None Seen)
[2025-06-13 12:01] LABS: Alanine Aminotransferase 26 U/L (7-40); Albumin 4.7 g/dL (3.2-4.8); Anion Gap 11 (5-15); BUN/Creatinine Ratio 13.2 (10.0-20.0); Bilirubin, Total 1.0 mg/dL (0.2-1.0); Blood Urea Nitrogen 20 mg/dL (9-23); Carbon Dioxide 23 mmol/L (20-31); Chloride 106 mmol/L (98-107); Cholesterol 180 mg/dL (< 200); HDL Cholesterol 41 mg/dL (40-59); Potassium 4.5 mmol/L (3.5-5.1); Sodium 140 mmol/L (136-145); Total Protein 7.7 g/dL (5.7-8.2)
[2025-06-13 12:04] LABS: Alkaline Phosphatase 135 U/L (46-116); Calcium 11.0 mg/dL (8.7-10.4); Glucose 129 mg/dL (74-106); Triglycerides 188 mg/dL (< 150)
== END 2025-06-13 17:00 | disposition home or self-care (01) ==
LOC: LAB 09:42
PROVIDERS: ATTEND Internal Medicine
DX: E11.22 Type 2 diabetes mellitus with diabetic chronic kidney disease (principal); N18.31 Chronic kidney disease, stage 3a
CPT/HCPCS: 36415; 80053; 80061; 81001; 82043; 83036; 85025

== ENCOUNTER 2025-07-27 11:51 | Outpatient (CLI) | payer MEDICARE, MEDICAID ==
[2025-07-27 12:16] LABS: Potassium 4.5 mmol/L (3.5-5.1); Sodium 141 mmol/L (136-145)
[2025-07-27 12:17] LABS: Anion Gap 6 (5-15); Carbon Dioxide 26 mmol/L (20-31)
[2025-07-27 12:18] LABS: Calcium 9.8 mg/dL (8.7-10.4)
[2025-07-27 12:22] LABS: BUN/Creatinine Ratio 10.6 (10.0-20.0); Blood Urea Nitrogen 17 mg/dL (9-23)
[2025-07-27 12:31] LABS: Chloride 109 mmol/L (98-107); Glucose 118 mg/dL (74-106)
== END 2025-07-27 17:00 | disposition home or self-care (01) ==
LOC: LAB 11:51
PROVIDERS: ATTEND Internal Medicine
DX: Z01.812 Encounter for preprocedural laboratory examination (principal); K76.89 Other specified diseases of liver
CPT/HCPCS: 36415; 80048

== ENCOUNTER 2025-08-08 09:34 | Outpatient (CLI) | payer MEDICARE, MEDICAID ==
[2025-08-08 09:51] LABS: Hematocrit 44.1 % (41.0-53.0); Hemoglobin 15.6 g/dL (13.5-17.5); Mean Corpuscular Hemoglobin 32.7 pg (28.0-32.0); Mean Corpuscular Volume 92.5 fL (80.0-100.0); Nucleated Red Blood Cells % 0.0 %
[2025-08-08 10:05] LABS: Chloride 107 mmol/L (98-107); Potassium 4.4 mmol/L (3.5-5.1); Sodium 141 mmol/L (136-145)
[2025-08-08 10:06] LABS: Anion Gap 9 (5-15); Calcium 9.5 mg/dL (8.7-10.4); Carbon Dioxide 25 mmol/L (20-31); INR 0.99 (0.9-1.15); Partial Thromboplastin Time 28.5 SEC (24.5-34.5); Prothrombin Time 10.5 sec (9.3-11.8)
[2025-08-08 10:11] LABS: BUN/Creatinine Ratio 9.3 (10.0-20.0); Blood Urea Nitrogen 14 mg/dL (9-23); Glucose 206 mg/dL (74-106)
== END 2025-08-08 17:00 | disposition home or self-care (01) ==
LOC: LAB 09:34
PROVIDERS: ATTEND Internal Medicine
DX: K76.89 Other specified diseases of liver (principal)
CPT/HCPCS: 36415; 80048; 85025; 85610; 85730

== ENCOUNTER 2025-08-10 07:30 | Outpatient (CLI) | payer MEDICARE, MEDICAID ==
[2025-08-10] VITALS (8 sets, daily range): BP systolic 115–164; BP diastolic 58–79; PULSE 67–80; RESP 14–19; TEMP 97.9; O2SAT 95–99
[2025-08-10] MEDS: fentaNYL CITRATE 100 MCG/2 ML VL IV ONE (07:45)
[2025-08-10] MEDS: MIDAZOLAM HCL 2MG/2ML 2ml VIAL (1mg/ml) IV ONE (07:45)
[2025-08-10] MEDS: LIDOCAINE 2%HCL (LOCAL ANESTH.) INJ 10ml MDV ONE (07:51)
[2025-08-10] MEDS: MIDAZOLAM HCL 2MG/2ML 2ml VIAL (1mg/ml) ONE (07:55)
[2025-08-10] MEDS: fentaNYL CITRATE 100 MCG/2 ML VL ONE (07:56)
[2025-08-10] MEDS: GELATIN 1 SPONGE SIZE 50 TOP ONE (07:57)
--- NOTE | 2025-08-10 09:16 | DVH ---
US US GUIDANCE FOR NEEDLE PLACEME, HISTORY: LIVER BX PROCEDURE: Informed consent was obtained. The patient was placed supine on the CT scanner, and limite d US/CT was performed of the liver. IV sedation was administered. The skin over the area of interest was prepped with chlorhexidine which was allowed to dry and draped in the usual sterile fashion. Time out was performed. 1% local lidocaine was administered. With [intermittent CT/US guidance, Temno 17 gauge outer coaxial guiding needle was advanced into the right hepatic mass. Multiple biopsies were o btained using Temno 18 gauge inner core biopsy needle. The specimens were placed in formalin and sent to pathology for analysis. The needle was withdrawn , and the visceral tract embolized with gelfoam pledgets. Post procedural images were obtained. No immediate complication was identified. DLP = 755 mGy-cm. SEDATION: Dr. Robert Marsh was personally responsible for the administration of moderate sedation during the procedure performed, including the use of an independent trained observer who had no other duties during the procedure. The drugs utilized were IV fentanyl and versed (see nursing log for details). The total time of supervision by the attending physician was approximately 30 minutes. FINDINGS: Approximately 2.4 cm right hepatic mass adjacent to gallbladder. Intra-procedural images d emonstrate biopsy needle within the margin of targeted lesion. Post procedural images do not demonst rate any significant hemorrhage. IMPRESSION: US/CT guided right hepatic lobe mass biopsy. Pathology results pending.
== END 2025-08-10 17:00 | disposition home or self-care (01) ==
LOC: CT 07:30
PROVIDERS: ATTEND Internal Medicine
DX: K76.89 Other specified diseases of liver (principal); C22.0 Liver cell carcinoma; F17.210 Nicotine dependence, cigarettes, uncomplicated; Z79.899 Other long term (current) drug therapy
CPT/HCPCS: 47000; 76942; 77012; J2003; J2250; J3010; 10005; 74150

== ENCOUNTER 2025-08-19 10:04 | Outpatient (CLI) | payer MEDICARE, MEDICAID ==
[2025-08-19] MEDS ORDERED: BUPIVACAINE HCL 0.25% P/F 10 ML VIAL ONE (10:53)
[2025-08-19] MEDS ORDERED: IOHEXOL 300 MG/ML 100ML BOTTLE IJ ONE (10:54)
[2025-08-19] MEDS ORDERED: LIDOCAINE 2% (LOCAL ANESTH.) PF 5ml SDV ONE (10:54)
[2025-08-19] MEDS ORDERED: methylPREDNISolone ACETATE 80 MG/ML VL ONE (10:54)
--- NOTE | 2025-08-19 12:19 | DVH ---
XY FLUOROGUIDANCE FOR NEEDLE PLAC, XY R HIP 1V XRAY HISTORY: HIP PAIN,OSTEOARTHRITIS COMPARISON: US US GUIDANCE FOR NEEDLE PLACEME on DOS: 08/10/25, CT CT GUIDANCE FOR NEEDLE PLACEME on D OS: 08/10/25, US US GUIDANCE FOR NEEDLE PLACEME on DOS: 10/08/24 PROCEDURE: The risks and benefits of the procedure including infection, hemorrhage and technical failure were di scussed with the patient, who agreed to proceed. The patient was positioned supine on the fluoroscopy table. Time out was performed. The right hip was localized using fluoroscopy, and the location on the skin for needle insertion was marked. The regio n was prepped and draped using routine sterile technique. Approximately 1 cc of lidocaine was injecte d for local anesthesia. A 22 gauge spinal needle was inserted, and intra-articular location was confi rmed by injection of less than 1 cc of iodinated contrast. 1 cc of methylprednisolone (80 mg/cc) and 4 cc of Bupivacaine (0.25%) and 5 cc of 2% Lidocaine was then injected without complication. Fluorosc opy time was 0.2. The patient was informed of the temporary precautions to take following the procedure as well as of t he potential signs and symptoms which may indicate the need to contact physician, and expressed unde rstanding of this discussion. IMPRESSION: Successful steroid and anesthetic injection of the right hip.
== END 2025-08-19 17:00 | disposition home or self-care (01) ==
LOC: XYW 10:04
PROVIDERS: ATTEND Internal Medicine
DX: M16.11 Unilateral primary osteoarthritis, right hip (principal); E11.9 Type 2 diabetes mellitus without complications; E78.5 Hyperlipidemia, unspecified; F17.210 Nicotine dependence, cigarettes, uncomplicated; Z79.82 Long term (current) use of aspirin; Z79.899 Other long term (current) drug therapy
CPT/HCPCS: 20610; 77002; J1010; J2003; J3490; Q9967; 73501

== ENCOUNTER → 2025-08-31 | Outpatient (CLI) | payer MEDICARE, MEDICAID ==
[2025-08-31 09:44] LABS: Hematocrit 44.2 % (41.0-53.0); Hemoglobin 15.1 g/dL (13.5-17.5); Mean Corpuscular Hemoglobin 32.1 pg (28.0-32.0); Mean Corpuscular Volume 93.8 fL (80.0-100.0); Nucleated Red Blood Cells % 0.0 %
[2025-08-31 10:20] LABS: Alanine Aminotransferase 25 U/L (7-40); Albumin 4.2 g/dL (3.2-4.8); Anion Gap 9 (5-15); BUN/Creatinine Ratio 12.3 (10.0-20.0); Bilirubin, Total 0.6 mg/dL (0.2-1.0); Blood Urea Nitrogen 20 mg/dL (9-23); Calcium 9.7 mg/dL (8.7-10.4); Carbon Dioxide 27 mmol/L (20-31); Sodium 144 mmol/L (136-145); Total Protein 7.3 g/dL (5.7-8.2)
[2025-08-31 10:27] LABS: Alkaline Phosphatase 149 U/L (46-116); Chloride 108 mmol/L (98-107); Glucose 160 mg/dL (74-106); Potassium 5.2 mmol/L (3.5-5.1)
== END | disposition home or self-care (01) ==
LOC: LAB 09:22
PROVIDERS: ATTEND Internal Medicine Hematology & Oncology
DX: C22.0 Liver cell carcinoma (principal); N20.0 Calculus of kidney; R31.9 Hematuria, unspecified
CPT/HCPCS: 36415; 80053; 82105; 85025

== ENCOUNTER 2025-11-22 06:38 | Day surgery (SDC) | payer MEDICARE, MEDICAID ==
[2025-11-21 10:35] LABS: Hematocrit 46.7 % (41.0-53.0); Hemoglobin 15.8 g/dL (13.5-17.5); Mean Corpuscular Hemoglobin 31.6 pg (28.0-32.0); Mean Corpuscular Volume 93.4 fL (80.0-100.0); Nucleated Red Blood Cells % 0.0 %
[2025-11-21 10:44] LABS: Urine Protein, UAD 1+ (Negative)
[2025-11-21 11:05] LABS: Alanine Aminotransferase 24 U/L (7-40); Albumin 4.7 g/dL (3.2-4.8); Anion Gap 7 (5-15); BUN/Creatinine Ratio 14.9 (10.0-20.0); Blood Urea Nitrogen 21 mg/dL (9-23); Carbon Dioxide 28 mmol/L (20-31); Chloride 107 mmol/L (98-107); Potassium 4.7 mmol/L (3.5-5.1); Sodium 142 mmol/L (136-145); Total Protein 7.9 g/dL (5.7-8.2)
[2025-11-21 11:06] LABS: Bilirubin, Total 1.1 mg/dL (0.2-1.0)
[2025-11-21 11:08] LABS: INR 0.98 (0.9-1.15); Partial Thromboplastin Time 29.2 SEC (24.5-34.5); Prothrombin Time 10.4 sec (9.3-11.8)
[2025-11-21 11:12] LABS: Alkaline Phosphatase 145 U/L (46-116); Calcium 10.4 mg/dL (8.7-10.4); Glucose 120 mg/dL (74-106)
[~2025-11-22] VITALS: Ht 170.2 cm; Wt 65.8 kg
[2025-11-22] MEDS ORDERED: CIPROFLOXACIN 400MG/200ML 200 ML IV ONE (06:43)
[2025-11-22] MEDS ORDERED: ACETAMINOPHEN IV 100 ML IV ONE (07:11)
[2025-11-22] MEDS: ACETAMINOPHEN IV 1000 MG/100ML (10MG/ML) IV ONE (07:15)
[2025-11-22] MEDS ORDERED: MIDAZOLAM HCL 2MG/2ML 2ml VIAL (1mg/ml) ONE (07:24)
[2025-11-22] MEDS ORDERED: KETAMINE 50mg/ML 1ml syringe ONE (07:24)
[2025-11-22] MEDS ORDERED: HYDROmorphone HCL 2 MG/ML VL/or syr ONE (07:24)
[2025-11-22] MEDS ORDERED: fentaNYL CITRATE 100 MCG/2 ML VL ONE ×2 (07:24→08:46)
[2025-11-22] MEDS ORDERED: GLYCOPYRROLATE 0.2 MG/ML 1ML VIAL ONE (07:25)
[2025-11-22] MEDS ORDERED: LIDOCAINE 2% (LOCAL ANESTH.) PF 5ml SDV ONE (07:25)
[2025-11-22] MEDS ORDERED: PROPOFOL 10 MG/ML 20 ML IV ONE (07:25)
[2025-11-22] MEDS ORDERED: SUGAMMADEX 200mg/2ml Vial (100MG/ML) IV ONE (07:25)
[2025-11-22] MEDS ORDERED: ONDANSETRON HCL 4 MG/2 ML VIAL ONE (07:25)
[2025-11-22] MEDS ORDERED: HYDROCORTISONE SOD SUCC 100 MG/2ML INJ VIAL ONE (07:25)
[2025-11-22] MEDS ORDERED: ROCURONIUM 10MG/ML 10ML VIAL IV ONE (07:25)
[2025-11-22] MEDS: IOHEXOL 300 MG/ML 100ML BOTTLE IJ ONE (08:07)
[2025-11-22] MEDS ORDERED: MEPERIDINE HCL (25 MG/ML) 1ML VIAL ONE (08:46)
[2025-11-22 10:00] VITALS: PULSE 86; RESP 12; TEMP 97.4
[2025-11-22] MEDS ORDERED: HYDROmorphone HCL 2 MG/ML VL/or syr IV PRN (10:15)
[2025-11-22] MEDS ORDERED: ACCU-CHEK COMFORT CURVE STRIP VI ONE (10:15)
[2025-11-22] MEDS ORDERED: ONDANSETRON HCL 4 MG/2 ML VIAL IV PRN (10:15)
--- NOTE | 2025-11-22 10:30 | DVHNC2 ---
Procedure - OPERATIVE REPORT Pre-op. Diagnosis: Kidney Stone - right Right ureteral stent, in situ and calcified bladder stones BPH Post-op. Diagnosis: Same as pre-op diagnosis Operation: Right ureteroscopy/pyeloscopy, laser lithotripsy with renal evacuation Cystoscopy with left ureteral stent removal Laser cystolitholapaxy Anesthesia: General Indications: Patient with kidney stone s/p lithotripsy and indwelling ureteral stent on 10/08/2024. He never returned for follow up due to his medical condition of liver cancer. He noted discomfort on his right side recently and was found to have persistent right kidney stones and calcified ureteral stent. The indications, risks, complications, alternatives and benefits were discussed. All questions were encouraged and answered. Patient is aware of risks/complicati ons including but not limited to infection, bleeding, persistent pain, possible ureteral injury/ureteral stricture requiring additional surgical management, urethral injury, urethral stricture and meatal stenosis. Details of Procedure: After obtaining the consent, patient was taken to OR suite and underwent general anesthesia. Preop antibiotic was given. Timeout was performed and deemed to be correct. With the patient positioned in the lithotomy, the area of the genitalia prepped and draped in usual sterile fashion. 22 F Cystoscope was used to access the urethra and bladder. Due to the finding of meatal stenosis, urethral dilation was performed. Prostatic urethra shows slight coaptation of the lateral lobes and a small median lobe prostate. There was a large bladder calculus adherent to the distal portion of the ureteral stent. 500 micronThulium laser fiber was used to fragment the stone and subsequently remove the stent. The right ureteral stent was grasped and removed. A sensor tip guide wire was advanced through the scope into the left ureter all the way to the collecting system under fluoroscopic control. I advanced Navigator ureteral access sheet over the working wire all the way to the proximal ureter under fluoroscopy control, then the inner sheet and the working wire was removed. The Digital flexible ureteroscope ([employer]) was advanced through the access sheet. The stones were visualized. Now using a 200 micron laser fiber the stone was blasted into small fragments and suctioned out while in dusting mode. Ureteroscope was then removed . The ureteral stent was not indicated. But a Padron catheter was placed for the findings of meatal stenosis. Patient was placed in supine position and awakened. He was transferred to in stable condition. Specimens: renal stone fragments Old calcified ureteral stent Complications: None Findings: minimal residual right lower pole stone fragments remain Notes: patient may require additional extracorporeal shockwave lithotripsy of the lower pole residual stone fragments NICA HERNANDEZ MD Nov 22, 2025 10:30
--- NOTE | 2025-11-22 10:33 | DVHDS2 ---
New Physician D'charge PN Admitting Diagnosis Admitting Diagnosis Right ureteral stent calcified Right renal calculus Bladder stone BPH Discharge Diagnosis Same Urethral stenosis/meatal stenosis dilated Operations or Procedures Right ureteroscopic laser lithotripsy with renal evacuation and stent removal Cysto litholapaxy Reason(s) For Hospitalization Surgery Treatment Plan Discharge Condition of Discharge Good Disposition Home Discharge Instructions Diet: Regular Activity: Light activity Activity comment: Padron to gravity Medications: Given Follow Up Care Follow Up/Referral: Padron removal on Friday Discharge Statement: "Patient was advised to return to the ER or call 911 if any headaches, dizziness, shortness of breath, chest pain, abdominal pain, bleeding, fevers, or worsening of medical condition. Patient was counseled about treatment plan, medications, possible side effects, patientverbalized understanding. All questions were answered to the best of my ability. This discharge took greater then 30 minutes in planning, reviewing doc umentation, counseling the patient, and discussing with other team members." NICA HERNANDEZ MD Nov 22, 2025 10:33
[2025-11-22 10:35] VITALS: PULSE 89; RESP 12
[2025-11-22 11:05] VITALS: PULSE 87; RESP 12
[2025-11-22 11:25] VITALS: BP 153/69; PULSE 89; RESP 12; O2SAT 98
[2025-11-22 11:35] VITALS: RESP 12
[2025-11-22 12:05] VITALS: RESP 12
--- NOTE | 2025-11-22 12:09 | DVH ---
C-ARM FLUOROSCOPY: PROCEDURE: right ureteral stent removal FLUOROSCOPY TIME: 51 sec DAP: 7.57 mgy FINDINGS: Spot intraoperative C arm radiographs demonstrating right ureteral stent removal. IMPRESSION: Please refer to surgical report for detailed findings.
== END 2025-11-22 12:05 | disposition home or self-care (01) ==
LOC: SUR 06:38
PROVIDERS: ATTEND Urology
DX: N20.0 Calculus of kidney (principal); N21.0 Calculus in bladder; N40.0 Benign prostatic hyperplasia without lower urinary tract symptoms; N18.30 Chronic kidney disease, stage 3 unspecified; E11.9 Type 2 diabetes mellitus without complications; K21.9 Gastro-esophageal reflux disease without esophagitis; Z79.899 Other long term (current) drug therapy; Z85.05 Personal history of malignant neoplasm of liver; Z98.890 Other specified postprocedural states; Z87.891 Personal history of nicotine dependence
CPT/HCPCS: 36415; 52318; 52353; 74018; 80053; 81001; 82360; 82962; 85025; 85610; 85730; 87086; A4315; C1758; J0744; J1171; J1720; J2003; J2175; J2250; J2405; J2704; J3010; 76000; J0131